=== PATIENT | male | born 1995 | race Asian ===

== ENCOUNTER 2020-05-30 15:44 | Outpatient (REF) | payer OTHER, SELFPAY | END 2020-05-30 15:45 | disposition home or self-care (01) | LOC: HO.LAB 15:44 | PROVIDERS: Visit Provider Internal Medicine | DX: Z20.822 Contact with and (suspected) exposure to COVID-19 (principal) | CPT/HCPCS: 36415; C9803; U0003 ==

== ENCOUNTER 2020-06-09 12:39 | Outpatient (REF) | payer OTHER, SELFPAY | END 2020-06-09 12:40 | disposition home or self-care (01) | LOC: HO.LAB 12:39 | PROVIDERS: Visit Provider Internal Medicine | DX: Z20.822 Contact with and (suspected) exposure to COVID-19 (principal) | CPT/HCPCS: 36415; C9803; U0003; U0005 ==

== ENCOUNTER 2020-11-25 17:05 | Emergency (ER) | payer OTHER, SELFPAY | END 2020-11-25 18:54 | disposition left against medical advice (07) | PROVIDERS: Emergency Provider Emergency Medicine | DX: R10.9 Unspecified abdominal pain (principal) ==

== ENCOUNTER 2020-11-26 19:35 | Emergency (ER) | payer OTHER, SELFPAY ==
--- NOTE | ~2020-11-26 | CT_ITS ---
EXAMINATION: CT ABDOMEN AND PELVIS WITH CONTRAST CLINICAL INFORMATION: Right lower quadrant pain COMPARISON: None TECHNIQUE: Multidetector volumetric images were obtained from the superior aspect of the liver through the pubic symphysis following administration 85 mL of Omnipaque 350 intravenous contrast. Sagittal and coronal reformatted images were obtained on the technologist's workstation. Oral contrast: No This CT examination was performed using dose optimization techniques as appropriate, variously including the following: *Automated exposure control *Adjustment of mA and/or kV according to patient size (this includes techniques or standardized protocols for targeted exams where dose is matched to indication/reason for exam; i.e. extremities or head) *Use of iterative reconstruction technique DLP: 564 mGy-cm FINDINGS: LUNG BASES: The visualized lung bases are unremarkable. LIVER, GALLBLADDER, AND BILIARY TREE: The liver is normal in size, shape, and attenuation. No focal hepatic lesion or biliary ductal dilatation is present. The gallbladder is unremarkable with no evidence of radiopaque gallstones, gallbladder wall thickening, or obvious pericholecystic inflammatory changes. PANCREAS: Unremarkable. SPLEEN: Unremarkable. ADRENAL GLANDS: Unremarkable. KIDNEYS AND URETERS: The kidneys are normal in size, shape, and attenuation. There are several bilateral nonobstructive radiopaque calculi. The largest radial or calculi lower pole right kidney measures 3 mm. A 2 mm, 3 mm and a 4 mm mid pole right kidney radiopaque calculi seen. There are few punctate radiopaque density seen in midpole left kidney measuring 1 mm. There is a 3 mm radiopaque calculi distal ureter with mild hydroureteronephrosis. There is periureteral fat stranding. There is mild right hydroureteronephrosis but no obstructive etiology seen. BLADDER: Unremarkable. GASTROINTESTINAL TRACT: There is scattered stool and gas seen throughout the colon without any distention. The small bowel loops are normal caliber. The stomach is nondistended and appears unremarkable. ABDOMINAL WALL: A small amount of hernia containing fat is noted. LYMPH NODES: Normal. VASCULAR: Unremarkable. PELVIC VISCERA: The prostate gland is normal size. OSSEOUS STRUCTURES: Unremarkable. CT/CT abdomen pelvis w con IMPRESSION: 3 mm obstructing left distal ureteral stone with periureteral fat stranding, ureteral wall thickening and mild hydroureteronephrosis. There are bilateral nephrolithiasis. Bilateral constipation. Appendix is not visualized but no inflammatory process seen in the right lower quadrant.
[2020-11-26 19:39] VITALS: BP 131/75; PULSE 79; RESP 18; TEMP 36.8; O2SAT 100; BMI 27.3
[2020-11-26 19:52] LABS: Glucose Urine UA NEG (NEG); Leukocyte Esterase Urine NEG (NEG); Nitrite Urine NEG (NEG); PH 6.5 (5.0-8.0); Urine Blood NEG (NEG); Urine Ketones NEG (NEG); Urine Protein NEG (NEG-TRACE)
[2020-11-26 19:57] LABS: Appearance Urine CLEAR; Color Urine YELLOW
[2020-11-26 20:56] VITALS: BP 134/76; PULSE 56; RESP 16; TEMP 37.1; O2SAT 100
--- NOTE | 2020-11-26 21:09 | ED_ITS ---
HPI - Abdominal Pain General Chief Complaint: Abdominal Pain Stated Complaint: kidney stones Time Seen by Provider: 11/26/20 21:09 Source: patient Mode of arrival: ambulatory History of Present Illness HPI narrative: 25-year-old male without significant past medical history but does state a history of kidney stones approximately 2-3 years ago now presents with nonradiating/crampy/constant, lower abdominal/suprapubic pain for the past 2 days that has been worsening and he now rates as a 7/10, he has had decreased appetite and reports an episode of nausea and vomiting approximately 1 day ago but denies fever/chills/diarrhea. Patient does describe difficulty urinating. Related Data Previous Rx's Medication Instructions Recorded ketorolac 10 mg tablet 10 mg PO Q6H PRN 5 Days #20 tab 11/26/20 prednisone 20 mg tablet 20 mg PO DAILY 4 Days #4 tab 11/26/20 tamsulosin 0.4 mg capsule (Flomax) 0.4 mg PO BEDTIME #4 cap 11/26/20 Allergies Allergy/AdvReac Type Severity Reaction Status Date / Time No Known Allergies Allergy Verified 11/26/20 19:39 Review of Systems Review of Systems Pertinent positives and negatives as stated in HPI 10 point review of systems otherwise negative. Physical Exam Vital Signs: Vital Signs: Last Vital Signs Temp 99 F 11/26/20 22:27 Pulse 77 11/26/20 22:27 Resp 12 11/26/20 22:27 BP 122/67 11/26/20 22:27 Pulse Ox 100 11/26/20 22:27 Body Mass Index 27.3 VITAL SIGNS: Reviewed. GENERAL: Well developed, well nourished, in no acute distress. HEAD: Normocephalic/atraumatic EYES: PERRLA, EOMI EARS: Ext canals without abnormality OROPHARYNX: no oral lesions noted, posterior pharynx clear LUNGS: Normal breath sounds. No adventitious sounds or accessory muscle use. SpO2<100> CARDIOVASCULAR: Regular rate and rhythm without noted murmurs ABDOMEN: Soft, tenderness at right lower quadrant/suprapubic without rebound non-distended with bowel sounds. MUSCULOSKELETAL: No tenderness, deformities, or effusions noted on gross inspection. EXTREMITIES: No cyanosis, clubbing or edema. SKIN: Inspection of the skin reveals no rashes NEUROLOGIC: Alert and oriented x 4. Strength and sensation to light touch were grossly intact x 4. Course Course Course Narrative: 25-year-old male with history and clinical presentation suggestive of possible appendicitis as there is no described flank pain and review of urinalysis results without hematuria, suspicion for appendicitis is upper most in my mind. Review of all investigations significant for 3 mm obstructing left distal ureteral stone, and on re-evaluation patient's pain has completely resolved. I discussed the case briefly with Urology who is agreeable to see patient in the morning. Discussed all results with the patient at bedside and he was discharged in stable condition. MDM - Abdominal Pain Lab Data Result diagrams: 11/26/20 21:16 11/26/20 21:16 Labs: Lab Results 11/26/20 11/26/20 11/26/20 Range/Units 19:46 21:16 21:16 WBC 6.9 (4.8-10.8) X10*3/uL RBC 5.14 (4.60-5.80) X10*6/uL Hgb 11.7 L (14.0-18.0) g/dl Hct 38.6 L (42-52) % MCV 75.1 L (80-98) fL MCH 22.8 L (27.0-33.0) pg MCHC 30.3 L (31.0-36.0) g/dl RDW 14.6 (11.0-16.0) % Plt Count 225 (160-400) X10*3/uL MPV 11.3 (9.4-12.4) fL Immature Gran % (Auto) 0.1 (0.0-0.4) % Neut % (Auto) 36.9 L (45-73) % Lymph % (Auto) 47.1 H (20-40) % [place] % (Auto) 9.0 (2-11) % Eos % (Auto) 6.5 H (0-4) % Baso % (Auto) 0.4 (0-2) % Lymph # (Auto) 3.3 (1.2-4.9) X10*3/uL [place] # (Auto) 0.6 (0.1-1.2) X10*3/uL Eos # (Auto) 0.5 H (0.0-0.4) X10*3/uL Baso # (Auto) 0.0 (0.0-0.2) X10*3/uL Abs Immat Gran (auto) 0.01 (0.00-0.03) X10*3/uL Absolute Neuts (auto) 2.5 (2.0-8.3) X10*3/uL Absolute Nucleated RBC 0.000 (0.0-0.012) X10*3/uL Nucleated RBC % (auto) 0.0 (0.0-0.2) /100WBC Sodium 139 (135-145) mmol/L Potassium 4.6 (3.3-5.1) mmol/L Chloride 106 (96-108) mmol/L Carbon Dioxide 25 (22-29) mmol/L Anion Gap 13 (12-20) BUN 11 (9-16) mg/dL Creatinine 0.91 (0.5-1.4) mg/dL Estim Creat Clear Calc 119.0 Estimated GFR > 60 Random Glucose 93 (60-115) mg/dL Calcium 9.4 (8.4-10.2) mg/dL Total Bilirubin 0.3 (0.0-1.0) mg/dL AST 17 (5-37) U/L ALT 22 (0-40) U/L Alkaline Phosphatase 57 (39-117) U/L Total Protein 7.3 (6.5-8.0) g/dL Albumin 4.3 (3.5-5.0) g/dL Urine Color YELLOW Urine Appearance CLEAR Urine pH 6.5 (5.0-8.0) Ur Specific [place] 1.020 (1.005-1.025) Urine Protein NEG (NEG-TRACE) MG/DL Urine Glucose (UA) NEG (NEG) MG/DL Urine Ketones NEG (NEG) MG/DL Urine Blood NEG (NEG) Urine Nitrite NEG (NEG) Ur Leukocyte Esterase NEG (NEG) Discharge Plan Discharge Clinical Impression: Ureterolithiasis, Renal colic Patient Disposition: Home, Self-Care Instructions: Renal Colic (ED), Ureteral Stones (ED) Additional Instructions: 1. Increase fluid hydration especially with water, and avoid caffeine and carbonated beverages. 2. Tylenol 1000 mg, orally, every 6 hours as needed for pain control. Do not exceed 4000 mg within 24 hours. 3. Follow-up with Urology, Dr. Black, by calling the office in the morning. The referral is provided to you below. 4. Return to the ER for acute worsening of symptoms. Prescriptions: New tamsulosin [Flomax] 0.4 mg capsule 0.4 mg PO BEDTIME Qty: 4 RF: 0 ketorolac 10 mg tablet 10 mg PO Q6H PRN (Reason: pain) 5 Days Qty: 20 RF: 0 prednisone 20 mg tablet 20 mg PO DAILY 4 Days Qty: 4 RF: 0 Referrals: Job Sarmiento MD [Physician] - 2 days (Eval and treat for obstructing 3 mm stone.) [facility] Past Medical History Source: nursing notes reviewed Medical History Kidney stones Social History Social History Patient Tobacco Use Status: Never used Tobacco Use of substances other than those prescribed or required for medical reasons: No Advance Directives: No Advance Directives Information Provided: Yes
[2020-11-26 21:19] LABS: MANUAL DIFF FLAG NO
[2020-11-26 21:21] LABS: Basophils Percent Auto 0.4 % (0-2); Eosinophils Absolute Auto 0.5 X10*3/uL (0.0-0.4); Eosinophils Percent Auto 6.5 % (0-4); Hematocrit 38.6 % (42-52); Hemoglobin 11.7 g/dl (14.0-18.0); Imm Gran Abs Auto 0.01 X10*3/uL (0.00-0.03); Imm Gran Pct Auto 0.1 % (0.0-0.4); Lymphocytes Absolute Auto 3.3 X10*3/uL (1.2-4.9); Lymphocytes Percent Auto 47.1 % (20-40); Mean Corpuscular HGB Conc 30.3 g/dl (31.0-36.0); Mean Corpuscular Hemoglobin 22.8 pg (27.0-33.0); Mean Corpuscular Volume 75.1 fL (80-98); Mean Platelet Volume 11.3 fL (9.4-12.4); Monocytes Absolute Auto 0.6 X10*3/uL (0.1-1.2); Neutrophils Absolute Auto 2.5 X10*3/uL (2.0-8.3); Neutrophils Percent Auto 36.9 % (45-73); Platelet Count 225 X10*3/uL (160-400); Red Blood Count 5.14 X10*6/uL (4.60-5.80); Red Cell Distribution Width 14.6 % (11.0-16.0); White Blood Count 6.9 X10*3/uL (4.8-10.8)
[2020-11-26] MEDS: Acetaminophen 325 MG TABLET 975 MG PO (21:22)
[2020-11-26] MEDS: Ketorolac Tromethamine 15 MG/ML VIAL IVPUSH (21:22)
--- NOTE | 2020-11-26 21:28 | PC.NURSE ---
PT REPORTS LOWER ABD PAINx2 DAYS. HX KIDNEY STONES STATE PAIN FEELS SIMILAR. SOME PAIN ON URINATION. DENIES N/V. IV ACCESS AND BLOOD SPECIMEN OBTAINED- SENT TO LAB FOR PROCESSING. MEDICATED PER JUN FOR 10/09 PAIN. AWAITING FURTHER TESTING AND LAB RESULTS.
[2020-11-26 21:55] LABS: Alanine Aminotransferase 22 U/L (0-40); Albumin Level 4.3 g/dL (3.5-5.0); Alkaline Phosphatase 57 U/L (39-117); Anion Gap 13 (12-20); Aspartate Amino Transferase 17 U/L (5-37); Bilirubin Total 0.3 mg/dL (0.0-1.0); Blood Urea Nitrogen 11 mg/dL (9-16); Calcium 9.4 mg/dL (8.4-10.2); Carbon Dioxide 25 mmol/L (22-29); Chloride 106 mmol/L (96-108); Estimated Glomerular Filt Rate > 60; Glucose Random 93 mg/dL (60-115); Potassium 4.6 mmol/L (3.3-5.1); Sodium 139 mmol/L (135-145); Total Protein 7.3 g/dL (6.5-8.0)
[2020-11-26] MEDS: iohexoL 350 MG/ML 100 ML INFUS..BTL IV (22:24)
[2020-11-26 22:27] VITALS: BP 122/67; PULSE 77; RESP 12; TEMP 37.2; O2SAT 100
== END 2020-11-26 23:15 | disposition home or self-care (01) ==
PROVIDERS: Emergency Provider Student in an Organized Health Care Education/Training Program
DX: N13.2 Hydronephrosis with renal and ureteral calculous obstruction (principal); R10.30 Lower abdominal pain, unspecified; Z87.442 Personal history of urinary calculi
CPT/HCPCS: 36415; 74177; 80053; 81003; 85025; 96374; 99284; 99285; J1885; Q9967

== ENCOUNTER 2021-05-12 14:12 | Outpatient (REF) | payer OTHER, SELFPAY ==
[2021-05-12 15:01] LABS: Binax Now Covid-19 Ag Negative (Negative)
[2021-05-12 15:02] LABS: Binax Internal Control QC Valid
== END 2021-05-12 14:13 | disposition home or self-care (01) ==
LOC: HO.LAB 14:12
PROVIDERS: Visit Provider Internal Medicine
DX: Z20.822 Contact with and (suspected) exposure to COVID-19 (principal)
CPT/HCPCS: C9803

== ENCOUNTER 2021-12-18 17:49 | Emergency (ER) | payer OTHER, SELFPAY ==
[2021-12-18 19:43] VITALS: BP 120/60; PULSE 57; RESP 18; TEMP 37.2; O2SAT 99; BMI 26.6
== END 2021-12-19 03:57 | disposition left against medical advice (07) ==
PROVIDERS: Emergency Provider Emergency Medicine
DX: M54.50 Low back pain, unspecified (principal)
CPT/HCPCS: 99281; 99282

== ENCOUNTER 2023-02-09 10:55 | Outpatient (REF) | payer OTHER, SELFPAY ==
[2023-02-10 04:23] LABS: HBS Num1 3.38 mIU/mL (0-7.99); ~HepC Num1 0.06 S/CO (0.00-0.79); ~Hepatitis B Surface Antibody NONREACTIVE (Nonreactive); ~Hepatitis C Antibody Nonreactive (Nonreactive)
[2023-02-10 05:43] LABS: HBc Num2 7.52 S/CO; HBc Num3 7.55 S/CO; HBsAGNum2 Reactive; HBsAGNum3 Reactive; Hepatitis B Core Antibody Reactive (Nonreactive)
[2023-02-10 05:44] LABS: Hepatitis B Surface Antigen Retest CNFM (Negative)
[2023-02-11 12:53] LABS: Alpha Fetoprotein 3.8 ng/mL (<6.1)
[2023-02-11 13:54] LABS: Hepatitis B Viral DNA Qn - cp 2.22 Log IU/mL (NOT DETECTED); Hepatitis B Viral DNA Qn-IU/mL 167 IU/mL (NOT DETECTED)
[2023-02-15 05:44] LABS: Hepatitis B Core Antibody IgM NON-REACTIVE (NON-REACTIVE)
[2023-02-16 22:53] LABS: Hepatitis Delta Antibody NEGATIVE
== END 2023-02-09 10:56 | disposition home or self-care (01) ==
LOC: HO.HHCL 10:55
PROVIDERS: Visit Provider Family Medicine
DX: B19.10 Unspecified viral hepatitis B without hepatic coma (principal); K26.9 Duodenal ulcer, unspecified as acute or chronic, without hemorrhage or perforation
CPT/HCPCS: 36415; 80053; 80061; 82105; 82728; 83540; 85025; 86692; 86704; 86705; 86706; 86803; 87340; 87517

== ENCOUNTER 2023-02-16 15:29 | Outpatient (REF) | payer OTHER, SELFPAY ==
[2023-02-18 08:05] LABS: ~Hepatitis B Surface Antibody NONREACTIVE (Nonreactive)
[2023-02-18 09:19] LABS: HBc Num2 7.75 S/CO; HBc Num3 7.54 S/CO; HBsAGNum2 Reactive; HBsAGNum3 Reactive; Hepatitis B Core Antibody Reactive (Nonreactive); Hepatitis B Surface Antigen Retest CNFM (Negative)
[2023-02-18 16:03] LABS: Hepatitis B Viral DNA Qn - cp <1.00 DETECTED Log IU/mL (NOT DETECTED); Hepatitis B Viral DNA Qn-IU/mL <10 DETECTED IU/mL (NOT DETECTED)
[2023-02-19 08:38] LABS: Hepatitis B Core Antibody IgM NON-REACTIVE (NON-REACTIVE)
[2023-02-23 20:34] LABS: Hepatitis Delta Antibody NEGATIVE
== END 2023-02-16 15:30 | disposition home or self-care (01) ==
LOC: HO.HHCL 15:29
PROVIDERS: Visit Provider Family Medicine
DX: B19.10 Unspecified viral hepatitis B without hepatic coma (principal)
CPT/HCPCS: 36415; 86692; 86704; 86705; 86706; 87340; 87517

== ENCOUNTER 2023-03-09 08:20 | Outpatient (REF) | payer OTHER, SELFPAY ==
--- NOTE | ~2023-03-09 | US_ITS ---
EXAMINATION: US ABDOMEN COMPLETE CLINICAL INFORMATION: Hepatitis B. COMPARISON: CT abdomen and pelvis with contrast 11/26/2020. TECHNIQUE: Real-time imaging of the abdominal viscera. Technically limited study secondary to body habitus. FINDINGS: PANCREAS: Obscured. ABDOMINAL AORTA: Mostly obscured. INFERIOR VENA CAVA: Visualized portions are normal. LIVER: The liver is normal in size. The liver contour is normal. Parenchymal echogenicity is normal. No focal hepatic lesion. There is no intrahepatic biliary duct dilatation seen. GALLBLADDER: Possible adenomyomatosis. The gallbladder is physiologically distended without evidence of stones, sludge, polyps, wall thickening or pericholecystic fluid. COMMON BILE DUCT: Not visualized. RIGHT KIDNEY: Few nonobstructing renal calculi with the largest measuring 9 mm. No hydronephrosis. The kidney measures 10.0 cm in maximum dimension. LEFT KIDNEY: Possible upper pole cyst measures 6 x 3 x 6 mm. Few nonobstructing renal calculi with the largest measuring 6 mm. No hydronephrosis. The kidney measures 10.4 cm in maximum dimension. SPLEEN: The spleen measures 12.6 cm in maximum dimension. FREE FLUID: None. US/US abdomen complete IMPRESSION: Bilateral nephrolithiasis suspected. No hydronephrosis. Possible adenomyomatosis of the gallbladder.
== END 2023-03-09 08:21 | disposition home or self-care (01) ==
LOC: HO.US 08:20
PROVIDERS: PCP Family Medicine; Visit Provider Family Medicine
DX: B19.10 Unspecified viral hepatitis B without hepatic coma (principal)
CPT/HCPCS: 76700

== ENCOUNTER 2023-03-09 12:12 | Outpatient (REF) | payer OTHER, SELFPAY ==
[2023-03-09 13:47] LABS: Hematocrit 43.7 % (42.0-52.0); Hemoglobin 12.4 g/dl (14.0-18.0); Mean Corpuscular HGB Conc 28.4 g/dl (31.0-36.0); Mean Corpuscular Hemoglobin 22.4 pg (27.0-33.0); Mean Corpuscular Volume 78.9 fL (80.0-98.0); Mean Platelet Volume 11.5 fL (9.4-12.4); Platelet Count 234 X10*3/uL (160-400); Red Blood Count 5.54 X10*6/uL (4.60-5.80); White Blood Count 5.7 X10*3/uL (4.8-10.8)
== END 2023-03-09 12:13 | disposition home or self-care (01) ==
LOC: HO.HHCL 12:12
PROVIDERS: Visit Provider Family Medicine
DX: D64.9 Anemia, unspecified (principal)
CPT/HCPCS: 36415; 85027

== ENCOUNTER 2023-06-08 18:28 | Outpatient (REF) | payer OTHER, SELFPAY ==
[2023-06-08 18:42] LABS: Appearance Urine Clear; Color Urine Yellow; Glucose Urine UA Negative (Negative); Leukocyte Esterase Urine Negative (Negative); Nitrite Urine Negative (Negative); Specific Gravity - Urine <= 1.005 (1.005-1.025); Urine Blood Negative (Negative); Urine Ketones Negative (Negative); Urine Protein Negative (Neg-Trace)
[2023-06-08 18:48] LABS: Bacteria Urine None Seen (None Seen); Hyaline Casts Urine 0-2 /LPF (0-2); RBC Urine 0-2 /HPF (0-2); Squamous Epithelial Cell Urine 0-2 /HPF (0-2); WBC Urine 0-5 /HPF (0-5)
== END 2023-06-08 18:29 | disposition home or self-care (01) ==
LOC: HO.HHCLNP 18:28
PROVIDERS: Visit Provider Nurse Practitioner
DX: R39.9 Unspecified symptoms and signs involving the genitourinary system (principal)
CPT/HCPCS: 81001

== ENCOUNTER 2023-06-09 10:47 | Outpatient (REF) | payer OTHER, SELFPAY ==
[2023-06-09 11:24] LABS: MANUAL DIFF FLAG NO
[2023-06-09 11:43] LABS: Basophils Percent Auto 0.5 % (0-2); Eosinophils Absolute Auto 0.5 X10*3/uL (0.0-0.4); Eosinophils Percent Auto 7.9 % (0-4); Hematocrit 48.5 % (42.0-52.0); Hemoglobin 15.6 g/dl (14.0-18.0); Imm Gran Abs Auto 0.02 X10*3/uL (0.00-0.03); Imm Gran Pct Auto 0.4 % (0.0-0.4); Lymphocytes Absolute Auto 2.2 X10*3/uL (1.2-4.9); Lymphocytes Percent Auto 38.9 % (20-40); Mean Corpuscular HGB Conc 32.2 g/dl (31.0-36.0); Mean Corpuscular Hemoglobin 25.7 pg (27.0-33.0); Mean Platelet Volume 11.6 fL (9.4-12.4); Monocytes Absolute Auto 0.4 X10*3/uL (0.1-1.2); Monocytes Percent Auto 7.2 % (2-11); Neutrophils Absolute Auto 2.6 x10*3/uL (2.0-8.3); Neutrophils Percent Auto 45.1 % (45-73); Platelet Count 170 X10*3/uL (160-400); Red Blood Count 6.06 X10*6/uL (4.60-5.80); Red Cell Distribution Width 13.5 % (11.0-16.0); White Blood Count 5.7 X10*3/uL (4.8-10.8)
[2023-06-09 12:08] LABS: Iron 49 mcg/dL (45-160); Percent Iron Saturation 15 % (15-50); Total Iron Binding Capacity 333 mcg/dL (228-428); Unsaturated Iron Binding 284 ug/dL
[2023-06-09 12:31] LABS: Ferritin 14 ng/mL (20-250)
== END 2023-06-09 10:48 | disposition home or self-care (01) ==
LOC: HO.HHCL 10:47
PROVIDERS: Visit Provider Nurse Practitioner
DX: D64.9 Anemia, unspecified (principal)
CPT/HCPCS: 36415; 82728; 83540; 85025

== ENCOUNTER 2023-06-17 11:35 | Outpatient (REF) | payer OTHER, SELFPAY ==
[2023-06-17 12:58] LABS: Alanine Aminotransferase 35 U/L (0-40); Aspartate Amino Transferase 22 U/L (5-37); Estimated Glomerular Filt Rate > 60
[2023-06-17 13:23] LABS: HBS Num1 0.94 mIU/mL (0-7.99); HBc Num1 7.16 S/CO (0.00-0.79); HIV AB/AG Nonreactive (Nonreactive); HIV Num 1 0.05 S/CO (0.00-0.99); ~HepC Num1 0.11 S/CO (0.00-0.79); ~Hepatitis B Surface Antibody NONREACTIVE (Nonreactive); ~Hepatitis C Antibody Nonreactive (Nonreactive)
[2023-06-17 13:25] LABS: Syphilis Screen Nonreactive (Nonreactive)
[2023-06-17 14:26] LABS: HBc Num2 6.93 S/CO; HBc Num3 6.91 S/CO; HBsAGNum2 Reactive; HBsAGNum3 Reactive; Hepatitis B Core Antibody Reactive (Nonreactive); Hepatitis B Surface Antigen Retest CNFM (Negative)
[2023-06-18 10:34] LABS: Hepatitis B Core Antibody IgM NON-REACTIVE (NON-REACTIVE)
[2023-06-20 10:18] LABS: HBsAG REACTIVE
[2023-06-20 12:58] LABS: Hepatitis B Viral DNA Qn - cp NOT DETECTED Log IU/mL (NOT DETECTED); Hepatitis B Viral DNA Qn-IU/mL NOT DETECTED (NOT DETECTED)
== END 2023-06-17 11:36 | disposition home or self-care (01) ==
LOC: HO.LAB 11:35
PROVIDERS: PCP Nurse Practitioner; Visit Provider Internal Medicine Infectious Disease
DX: Z11.4 Encounter for screening for human immunodeficiency virus [HIV] (principal); B19.10 Unspecified viral hepatitis B without hepatic coma
CPT/HCPCS: 36415; 82565; 84450; 84460; 86704; 86705; 86706; 86780; 86803; 87340; 87389; 87517

== ENCOUNTER 2023-07-25 13:44 | Outpatient (AMB) | payer OTHER, SELFPAY ==
--- NOTE | 2023-07-25 13:49 | A.OFFVIS_ITS ---
Intake Vital Signs 07/25/23 13:59 Height 5 ft 8 in Weight 185 lb 3.013 oz BMI 28.2 BP 132/72 Blood Pressure Location Lt brachial Position Sitting Pulse 77 Pulse Oximetry (%) 99 Oxygen Delivery Method Room Air Intake Visit Reasons: Duodenal ulcer Intake Note: pt here for pcp referral duodenal ulcer, abdominal pain, acid reflux,nause, no vomiting or diarrhea. Information Interpreted: non-clinical & clinical Accompanied by: Self / Same As Patient Allergies No Known Allergies Allergy (Verified 07/25/23 13:50) Medication List - Last Reconciled 07/25/23 by JACQUE Teresa-CHRIS entecavir 0.5 mg PO DAILY HPI Duodenal ulcer HPI Details Patient had upper endoscopy in [place] in November of 2022 that showed duodenal ulcers. Patient brought in his medical records from there, copy made for our records. Patient was on PPI, however last month his anemia improved and the PPI and iron was stopped. Patient continues to have epigastric discomfort and burning. Patient mainly eats food sometimes spicy food does not eat late at night. Patient reports that he has been treated for hep B for over 10 years. Currently under care of ID and is on daily antiviral. Patient does not remember the name. [facility] Medical History (Updated 08/01/23 @ 20:35 by DREW Teresa) GERD (gastroesophageal reflux disease) Duodenal ulcer disease Kidney stones Family History (Updated 07/25/23 @ 13:59 by Pamela Dobbs MA) Father Diabetes Social History (Updated 07/25/23 @ 13:59 by Pamela Dobbs MA) Household Members: Family Patient Tobacco Use Status: Never used Tobacco Review of Systems Const Denies weight gain and Denies weight loss ENT Reports no additional complaints, Denies dysphagia and Denies odynophagia Card Reports no additional complaints Resp Reports no additional complaints GI Denies abdominal pain, Denies belching, Denies melena, Denies bloating, Reports constipation, Denies dysphagia, Denies excessive flatus, Denies dyspepsia, Reports heartburn, Denies diarrhea, Denies loose stools, Denies nausea, Denies odynophagia and Denies vomiting Reports no additional complaints Musc Reports no additional complaints Neuro Reports no additional complaints Psych Reports no additional complaints Endo Reports no additional complaints Physical Exam Vital Signs: Last Vital Signs Pulse 77 07/25/23 13:59 BP 132/72 07/25/23 13:59 Pulse Ox 99 07/25/23 13:59 Oxygen Delivery Method Room Air 07/25/23 13:59 BMI result Body Mass Index 28.2 Const General: healthy appearing and no acute distress Nutritional Appearance: obese Orientation/consciousness: patient oriented x3 Resp Effort & Inspection: normal respiratory effort, able to speak in complete sentences, no tracheal deviation and symmetric chest movement Auscultation: clear to auscultation bilaterally Cardio Rate: regular rate GI Inspection: Yes normal to inspection, No distended and Yes obesity Palpation (GI): Soft to palpation, not firm, nontender and No hepatosplenomegaly present Auscultation: normal bowel sounds General: Yes no CVA tenderness Back/Spine/Pelvis Back: no CVA tenderness Skin General skin exam: elasticity normal, turgor normal and dry skin Neuro General: patient oriented x3 Psych Appearance: grossly normal Mental Status: mental status grossly normal Affect: normal affect Assessment & Plan Assessment & Plan (1) Duodenal ulcer disease: Code(s): K26.9 - Duodenal ulcer, unspecified as acute or chronic, without hemorrhage or perforation (2) GERD (gastroesophageal reflux disease): Code(s): K21.9 - Gastro-esophageal reflux disease without esophagitis Qualifiers: Esophagitis presence: esophagitis presence not specified Qualified Code(s): K21.9 - Gastro-esophageal reflux disease without esophagitis (3) Constipation: Code(s): K59.00 - Constipation, unspecified Qualifiers: Constipation type: slow transit constipation Qualified Code(s): K59.01 - Slow transit constipation Plan Will check for H pylori and rule out celiac. If H pylori positive will treat empirically. Will check his lipase as well. Patient does report epigastric pain and left upper quadrant pain postprandially. As mentioned above in HPI patient had upper endoscopy in November treated for duodenal ulcer his PPI recently stopped. Patient is having epigastric pain will start him on esomeprazole. Patient can start taking Dulcolax daily for constipation. He was encouraged to increase fluid intake and activity to promote better bowel motility. I will see him in 5 weeks, sooner on as needed basis. Patient will be scheduled for upper endoscopy to rule out duodenal or gastric ulcer, gastritis, duodenitis, esophagitis, H pylori, Barakat's. Patient is agreeable to this plan verbalizes understanding of instructions. He was given the opportunity to ask questions and all questions answered. Thank you for allowing me to participate in his care Orders: Orders Transglutaminase Ab IgG 07/25/23 R10.9 - Unspecified abdominal pain H Pylori Breath Test 07/26/23 K21.9 - Gastro-esophageal reflux disease without esophagitis Transglutaminase IgA 07/25/23 R10.9 - Unspecified abdominal pain Lipase 07/25/23 R10.9 - Unspecified abdominal pain Medications: New esomeprazole magnesium (Nexium) 40 mg PO DAILY 30 caps 5RF K21.9 - Gastro- esophageal reflux disease without esophagitis bisacodyl (Dulcolax (bisacodyl)) 10 mg (2 x 5 mg) PO BEDTIME 60 tabs 4RF Coding Level of Care Code New Pt Level 4 (22537) Diagnoses Duodenal ulcer disease K26.9 Gastroesophageal reflux disease, unspecified whether esophagitis present K21.9 Esophagitis presence: esophagitis presence not specified Slow transit constipation K59.01 Constipation type: slow transit constipation Time Spent (min) 45 Comment 30 minutes spent with patient and additional 15 minutes spent reviewing his records
[2023-07-25 13:59] VITALS: BP 132/72; PULSE 77; O2SAT 99; BMI 28.2
== END 2023-07-25 14:45 | disposition home or self-care (01) ==
PROVIDERS: PCP Nurse Practitioner; Visit Provider Nurse Practitioner Family
DX: K26.9 Duodenal ulcer, unspecified as acute or chronic, without hemorrhage or perforation (principal); K21.9 Gastro-esophageal reflux disease without esophagitis; K59.01 Slow transit constipation
CPT/HCPCS: 99204

== ENCOUNTER 2023-07-25 13:44 | Outpatient (REF) | payer OTHER, SELFPAY ==
[2023-07-25 15:52] LABS: Lipase 32 U/L (8-78)
[2023-07-30 16:24] LABS: Transglutaminase Ab IgG <1.0 U/mL; Transglutaminase IgA <1.0 U/mL
== END 2023-07-25 13:45 | disposition home or self-care (01) ==
LOC: HO.LAB 13:44
PROVIDERS: PCP Nurse Practitioner; Visit Provider Nurse Practitioner Family
DX: R10.9 Unspecified abdominal pain (principal); K26.9 Duodenal ulcer, unspecified as acute or chronic, without hemorrhage or perforation
CPT/HCPCS: 36415; 83690; 86364; 99202

== ENCOUNTER 2023-07-25 16:11 | Outpatient (REF) | payer OTHER, SELFPAY ==
[2023-07-27 14:12] LABS: H Pylori Breath Test Negative (Negative)
== END 2023-07-25 16:12 | disposition home or self-care (01) ==
LOC: HO.LNP 16:11
PROVIDERS: Visit Provider Nurse Practitioner Family
DX: K21.9 Gastro-esophageal reflux disease without esophagitis (principal)
CPT/HCPCS: 83013

== ENCOUNTER 2023-08-08 15:02 | Outpatient (REF) | payer OTHER, SELFPAY ==
[2023-08-08 16:16] LABS: MANUAL DIFF FLAG NO
[2023-08-08 16:20] LABS: Basophils Percent Auto 0.5 % (0-2); Eosinophils Absolute Auto 0.4 X10*3/uL (0.0-0.4); Eosinophils Percent Auto 4.9 % (0-4); Hematocrit 46.7 % (42.0-52.0); Imm Gran Abs Auto 0.02 X10*3/uL (0.00-0.03); Imm Gran Pct Auto 0.2 % (0.0-0.4); Lymphocytes Percent Auto 35.7 % (20-40); Mean Corpuscular HGB Conc 32.1 g/dl (31.0-36.0); Mean Corpuscular Hemoglobin 26.1 pg (27.0-33.0); Mean Corpuscular Volume 81.2 fL (80.0-98.0); Mean Platelet Volume 12.3 fL (9.4-12.4); Monocytes Absolute Auto 0.6 X10*3/uL (0.1-1.2); Monocytes Percent Auto 7.2 % (2-11); Neutrophils Absolute Auto 4.3 x10*3/uL (2.0-8.3); Neutrophils Percent Auto 51.5 % (45-73); Platelet Count 225 X10*3/uL (160-400); Red Blood Count 5.75 X10*6/uL (4.60-5.80); Red Cell Distribution Width 13.3 % (11.0-16.0); White Blood Count 8.3 X10*3/uL (4.8-10.8)
== END 2023-08-08 15:03 | disposition home or self-care (01) ==
LOC: HO.HHCL 15:02
PROVIDERS: Visit Provider Nurse Practitioner Family
DX: K64.9 Unspecified hemorrhoids (principal); K62.6 Ulcer of anus and rectum
CPT/HCPCS: 36415; 85025; 86695; 86696

== ENCOUNTER 2023-08-30 11:40 | Outpatient (AMB) | payer OTHER, SELFPAY ==
--- NOTE | 2023-08-30 11:50 | A.OFFVIS_ITS ---
Vital Signs 08/30/23 11:54 Height 5 ft 8 in Weight 176 lb BMI 26.8 BP 117/73 Blood Pressure Location Lt brachial Position Sitting Pulse 70 Intake Visit Reasons: follow up Intake Note: Patient follow up for constipation, lab and H pylori results Patient cc: abdominal pin with bloating, constipation with bloody hemorrhoids. 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 If H pylori positive will treat empirically. Will check his lipase as well. Patient does report epigastric pain and left upper quadrant pain postprandially. As mentioned above in HPI patient had upper endoscopy in November treated for duodenal ulcer his PPI recently stopped. Patient is having epigastric pain will start him on esomeprazole. Patient can start taking Dulcolax daily for constipation. He was encouraged to increase fluid intake and activity to promote better bowel motility. I will see him in 5 weeks, sooner on as needed basis. Patient will be scheduled for upper endoscopy to rule out duodenal or gastric ulcer, gastritis, duodenitis, esophagitis, H pylori, Barakat's. Patient is agreeable to this plan verbalizes understanding of instructions. He was given the opportunity to ask questions and all questions answered. ? Thank you for allowing me to participate in his care Orders Orders Transglutaminase Ab IgG 07/25/23 R10.9 H Pylori Breath Test 07/26/23 K21.9 Transglutaminase IgA 07/25/23 R10.9 Lipase 07/25/23 R10.9 Medications New esomeprazole magnesium (Nexium) 40 mg PO DAILY 30 caps 5RF K21.9 bisacodyl (Dulcolax (bisacodyl)) 10 mg (2 x 5 mg) PO BEDTIME 60 tabs 4RF TODAY'S VISIT: Patient is here today for follow-up and to discuss lab results. Negative for H pylori, normal lipase, negative celiac study. Patient reports that Nexium is helpful. Denies any epigastric pain or discomfort. Occasional acid reflux depending on what he eats. Patient continues to be constipated and continues to have rectal bleed occasionally after bowel movement. Patient reports that he has to strain in order to have a bowel movement. States that he is taking Dulcolax and is moving his bowels, however not completely. Patient denies any melena, unintentional weight loss or ribbon like stools. No known family history of colorectal cancer. [facility] Medical History (Updated 08/01/23 @ 20:35 by Keisha Velasquez, [facility]) GERD (gastroesophageal reflux disease) Duodenal ulcer disease Kidney stones Family History Father Diabetes Social History Household Members: Family Patient Tobacco Use Status: Never used Tobacco Review of Systems Const Denies weight gain and Denies weight loss ENT Reports no additional complaints, Denies dysphagia and Denies odynophagia Card Reports no additional complaints Resp Reports no additional complaints GI Denies abdominal pain, Denies belching, Denies melena, Denies bloating, Reports hematochezia (Occasionally), Denies change in bowel habits, Reports constipation, Denies dysphagia, Denies excessive flatus, Denies dyspepsia, Reports heartburn (Occasionally), Denies diarrhea, Denies loose stools, Denies nausea, Denies odynophagia and Denies vomiting Reports no additional complaints Musc Reports no additional complaints Neuro Reports no additional complaints Psych Reports no additional complaints Endo Reports no additional complaints Physical Exam Vital Signs: Last Vital Signs Pulse 70 08/30/23 11:54 BP 117/73 08/30/23 11:54 BMI result Body Mass Index 26.8 Const General: healthy appearing and no acute distress Nutritional Appearance: obese Orientation/consciousness: patient oriented x3 Resp Effort & Inspection: normal respiratory effort, able to speak in complete sentences, no tracheal deviation and symmetric chest movement Auscultation: clear to auscultation bilaterally Cardio Rate: regular rate GI Inspection: Yes normal to inspection, No distended and Yes obesity Palpation (GI): Soft to palpation, not firm, nontender and No hepatosplenomegaly present Auscultation: normal bowel sounds General: Yes no CVA tenderness Back/Spine/Pelvis Back: no CVA tenderness Skin General skin exam: elasticity normal, turgor normal and dry skin Neuro General: patient oriented x3 Psych Appearance: grossly normal Mental Status: mental status grossly normal Affect: normal affect Results Reviewed Results Reviewed: Laboratory Tests 07/25/23 07/25/23 14:37 14:55 Lipase 32 Tiss Transglutamin IgG <1.0 Tiss Transglutamin IgA <1.0 H. pylori Breath Test Negative Assessment & Plan Assessment & Plan (1) GERD (gastroesophageal reflux disease): Code(s): K21.9 - Gastro-esophageal reflux disease without esophagitis Category: Medical Qualifiers: Esophagitis presence: esophagitis presence not specified Qualified Code(s): K21.9 - Gastro-esophageal reflux disease without esophagitis (2) Duodenal ulcer disease: Code(s): K26.9 - Duodenal ulcer, unspecified as acute or chronic, without hemorrhage or perforation Category: Medical (3) Constipation: Code(s): K59.00 - Constipation, unspecified Qualifiers: Constipation type: slow transit constipation Qualified Code(s): K59.01 - Slow transit constipation Plan Continue Nexium. Patient will be sent for upper endoscopy occasional acid reflux depending on what he eats. Patient has had a history of peptic ulcer disease diagnosed last year. Continues to be constipated. Patient was encouraged to increase fluid intake. Patient states that he is not drinking any water. At least 2-3 bottles of water a day. Continue to take Dulcolax tablets, will start taking Colace 2 tablets every evening. I will see him after the procedure, sooner on as needed basis. Patient is agreeable to this plan and verbalizes understanding of instructions. He was given the opportunity to ask questions and all questions answered. Thank you for allowing me to participate in his care Medications: New docusate sodium 200 mg (2 x 100 mg) PO BEDTIME 180 caps 3RF K59.00 - Constipation, unspecified hydrocortisone 2.5% (Proctosol HC) 1 appl NM BID-QID PRN 30 grams 2RF hemorrhoids K64.9 - Unspecified hemorrhoids Coding Level of Care Code Est Pt Level 3 (84377) Diagnoses Gastroesophageal reflux disease, unspecified whether esophagitis present K21.9 Esophagitis presence: esophagitis presence not specified Duodenal ulcer disease K26.9 Slow transit constipation K59.01 Constipation type: slow transit constipation Time Spent (min) 30 Comment 20 minutes spent with patient and additional 10 minutes spent reviewing his records
[2023-08-30 11:54] VITALS: BP 117/73; PULSE 70; BMI 26.8
== END 2023-08-30 12:17 | disposition home or self-care (01) ==
PROVIDERS: PCP Nurse Practitioner; Visit Provider Nurse Practitioner Family
DX: K21.9 Gastro-esophageal reflux disease without esophagitis (principal); K26.9 Duodenal ulcer, unspecified as acute or chronic, without hemorrhage or perforation; K59.01 Slow transit constipation
CPT/HCPCS: 99213

== ENCOUNTER → 2023-08-30 11:40 | Outpatient (BNVA) | payer OTHER, SELFPAY | PROVIDERS: PCP Nurse Practitioner; Visit Provider Nurse Practitioner Family | DX: K21.9 Gastro-esophageal reflux disease without esophagitis (principal); K26.9 Duodenal ulcer, unspecified as acute or chronic, without hemorrhage or perforation; K59.01 Slow transit constipation | CPT/HCPCS: 99212 ==

== ENCOUNTER 2023-09-01 08:22 | Day surgery (SDC) | payer OTHER, SELFPAY ==
--- NOTE | 2023-08-31 12:22 | HO.ANESPROP2 ---
HPI - Anesthesia Eval Consult details Narrative: 27yo M for Upper Endoscopy PMFSH Active Problems Active Problems: All Active Problems GERD (gastroesophageal reflux disease) (Acute) Duodenal ulcer disease (Acute) Past Medical History Medical History GERD (gastroesophageal reflux disease) Duodenal ulcer disease Kidney stones Family History Family History Father Diabetes Social History Social History Household Members: Family Patient Tobacco Use Status: Never used Tobacco Use of substances other than those prescribed or required for medical reasons: No Are you DNR?: No Advance Directives: No Advance Directives Information Provided: Yes Meds Allergies Allergy/AdvReac Type Severity Reaction Status Date / Time No Known Allergies Allergy Verified 08/30/23 11:49 Home Medications ?Medication ?Instructions ?Recorded ?Confirmed ?Last Taken ?Type entecavir 0.5 mg tablet 0.5 mg PO DAILY 07/25/23 09/01/23 Unknown History Assessment and Plan Assessment Anesthesia Assessment: Chart Reviewed
--- NOTE | 2023-09-01 08:56 | MHC.SHP ---
Pre-Procedural Eval Section A - 24 Hr Update-Section A only Date of Service: 09/01/23 Section B - Complete if H&P > 30 days Chief Complaint: Duodenal ulcer, unspecified as acute/chronic, gerd Relevant Family History (Specify if Yes): No Relevant Social History: None Present Medications: see Short Stay Collaborative assessment Medical History: Significant History (GERD (gastroesophageal reflux disease) Duodenal ulcer disease Kidney stones) History of Previous Operations: No relevant previous surgery Allergies: Allergies Allergy/AdvReac Type Severity Reaction Status Date / Time No Known Allergies Allergy Verified 08/30/23 11:49 Review of Systems Sugical H&P ROS: Negative: Constitution, Cardiovascular, Respiratory, Neurological, Psychiatric, Hem-Onc, Allergic/Immunologic, Gastrointestinal, Genitourinary, Musculoskeletal, Integumentary, Endocrine and Eyes/Ears/Nose/Throat Exam Surgical H&P Exam: Normal: HEENT, Normal: Heart, Normal: Lungs, Normal: Extremities, Normal: Abdomen, Normal: Skin and Normal: Neurological Plan Diagnosis/Plan: Unchanged I have reviewed the history and physical and performed a pertinent physical examination on my patient. No changes have occurred unless specified. Time Spent With Patient Time: Total time managing care of this patient today ____ minutes.
[2023-09-01 09:07] VITALS: BP 130/83; PULSE 66; RESP 18; TEMP 36.2; O2SAT 98; BMI 27.1
--- NOTE | 2023-09-01 09:27 | P.CONAN_ITS ---
[facility] Active Problems Active Problems: All Active Problems GERD (gastroesophageal reflux disease) (Acute) Duodenal ulcer disease (Acute) Past Medical History Medical History GERD (gastroesophageal reflux disease) Duodenal ulcer disease Kidney stones Functional capacity: independent ambulation Family History Family History Father Diabetes Family history of problems with anesthesia: No Surgical History History of Problems with Anesthesia: No Social History Social History Household Members: Family Patient Tobacco Use Status: Never used Tobacco Use of substances other than those prescribed or required for medical reasons: No Are you DNR?: No Advance Directives: No Advance Directives Information Provided: Yes Meds Allergies Allergy/AdvReac Type Severity Reaction Status Date / Time No Known Allergies Allergy Verified 08/30/23 11:49 Active Medications: Current Medications Lactated Ringer's (Lr) 1,000 mls @ 100 mls/hr IVCONT .Q10H JOSHUA Home Medications ?Medication ?Instructions ?Recorded ?Confirmed ?Last Taken ?Type entecavir 0.5 mg tablet 0.5 mg PO DAILY 07/25/23 09/01/23 Unknown History Exam Height,Weight and Vital Signs: Height 5 ft 8 in Weight 80.739 kg Last Vital Signs Temp 97.2 F 09/01/23 09:07 Pulse 66 09/01/23 09:07 Resp 18 09/01/23 09:07 BP 130/83 09/01/23 09:07 Pulse Ox 98 09/01/23 09:07 O2 Del Method Room Air 09/01/23 09:07 Airway Mallampati Class: III TM Dist: >3cm Neck ROM: Full Heart: RRR Lungs: CTA Assessment and Plan Assessment Anesthesia Assessment: Anesthesia Plan Discussed Final Anesthetic Review Family History of Problems with Anesthesia: No History of Problems with Anesthesia: No NPO: Yes ASA Class: II Final Preanesthetic Review: Meds/Allgs Chart Reviewed, Consent Obtained/Reviewed and Anes Risks/Benef Reviewed Patient Risk: Intermediate Procedure Risk: Low Anesthetic Plan Anesthetic Plan: MAC: Disposition: Standard PACU
[2023-09-01 09:34] VITALS: BP 130/83; PULSE 66; RESP 18; TEMP 36.2; O2SAT 98
[2023-09-01] MEDS: Lactated Ringers 1,000 ML 100 ML IVCONT (09:36)
[2023-09-01 11:25] VITALS: BP 119/69; PULSE 65; RESP 16; TEMP 36.8; O2SAT 97
[2023-09-01 11:40] VITALS: BP 127/68; PULSE 59; RESP 18; TEMP 36.8; O2SAT 98
--- NOTE | 2023-09-01 12:12 | HO.POSTANES ---
Post Anesthesia Evaluation Post Anesthesia Evaluation Date of Service: 09/01/23 Vital Signs: Vital Signs Temp Pulse Resp BP Pulse Ox O2 Del Method 09/01/23 11:40 98.3 F 59 18 127/68 98 09/01/23 11:25 98.3 F 65 16 119/69 97 Room Air 09/01/23 09:34 97.2 F 66 18 130/83 98 Room Air 09/01/23 09:07 97.2 F 66 18 130/83 98 Room Air Anesthesia: Monitored Mental Status: Awake Pain Control: Satisfactory Nausea/Vomiting: None Hydration: Adequate Anesthesia-Related Issues: No Anes. Related Issues
--- NOTE | 2023-09-05 14:32 | W.PM.OPN ---
Operative Note Operative Note Date of Service: 09/05/23 Narrative: Procedure Description: EGD Indication: remote hx of duodenal ulcer Anesthesia: MAC FLEXIBLE TRANSORAL UPPER GASTROINTESTINAL ENDOSCOPY UPPER ENDOSCOPY Consent: Indications for the procedure and potential complications of bleeding, perforation, reaction to medications and missed diagnosis were discussed with the patient and informed consent was obtained. Instrument: Olympus GIF H 190 J mid size upper endoscope Monitoring: Vital signs and clinical assessment, continuous EKG monitoring, Pulse oximetry, Carbon Dioxide monitoring and blood pressure monitoring were done throughout the procedure. Procedure: The patient was placed in the left lateral decubitis position and pre-procedure medications were administered and a bite block was placed. The endoscope was inserted into the mouth and advanced under direct vision to the third part of duodenum. A careful inspection was made as the upper endoscope was withdrawn including a retroflexed examination of the proximal stomach; Findings and interventions are described below. Findings: Larynx:normal Esophagus: GE junction at 40 cm, diaphragm hiatus at 40 cm, normal mucosa Stomach: mild erythema . Biopsies were obtained. Grade 2 flap valve on retroflexed examination of the cardia. Duodenum: Normal bulb and descending duodenum, Intervention: Biopsies as noted above, Impression/Findings: gastritis PLAN: await path- if h pylori pos then treat GERD precautions
== END 2023-09-01 12:02 | disposition home or self-care (01) ==
PROVIDERS: PCP Nurse Practitioner; Visit Provider Internal Medicine Gastroenterology
PROC: 0DJ08ZZ Inspection of Upper Intestinal Tract, Via Natural or Artificial Opening Endoscopic (ICD-10-PCS; CPT 43235; principal; 2023-09-01 10:20)
DX: K21.9 Gastro-esophageal reflux disease without esophagitis (principal); K29.70 Gastritis, unspecified, without bleeding; Z87.19 Personal history of other diseases of the digestive system
CPT/HCPCS: 43239; 88305; 88313; 88342; J2704

== ENCOUNTER → 2023-09-01 08:22 | Outpatient (BNV) | payer OTHER, SELFPAY | PROVIDERS: PCP Nurse Practitioner; Visit Provider Internal Medicine Gastroenterology | DX: K29.70 Gastritis, unspecified, without bleeding (principal) | CPT/HCPCS: 43239 ==

== ENCOUNTER 2023-09-12 10:37 | Outpatient (AMB) | payer OTHER, SELFPAY ==
[2023-09-12 10:55] VITALS: BP 136/80; BMI 27.1
--- NOTE | 2023-09-12 10:55 | A.OFFVIS_ITS ---
Vital Signs 09/12/23 10:55 Height 5 ft 8 in Weight 178 lb 9.191 oz BMI 27.1 BP 136/80 Blood Pressure Location Lt brachial Position Sitting Intake Visit Reasons: s/p egd Intake Note: Patient presents to in office visit today in follow up s/p EGD. CC: Patient continues having abdominal bloating and constipation. Denies other GI symptoms today. 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 Patient will be sent for upper endoscopy occasional acid reflux depending on what he eats. Patient has had a history of peptic ulcer disease diagnosed last year. Continues to be constipated. Patient was encouraged to increase fluid intake. Patient states that he is not drinking any water. At least 2-3 bottles of water a day. Continue to take Dulcolax tablets, will start taking Colace 2 tablets every evening. I will see him after the procedure, sooner on as needed basis. Patient is agreeable to this plan and verbalizes understanding of instructions. He was given the opportunity to ask questions and all questions answered. ? Thank you for allowing me to participate in his care Medications New docusate sodium 200 mg (2 x 100 mg) PO BEDTIME 180 caps 3RF K59.00 hydrocortisone 2.5% (Proctosol HC) 1 appl ID BID-QID PRN 30 grams 2RF hemorrhoids K64.9 ENDOSCOPY: Findings: Larynx:normal Esophagus: GE junction at 40 cm, diaphragm hiatus at 40 cm, normal mucosa Stomach: mild erythema . Biopsies were obtained. Grade 2 flap valve on retroflexed examination of the cardia. Duodenum: Normal bulb and descending duodenum, Intervention: Biopsies as noted above, Impression/Findings: gastritis PLAN: await path- if h pylori pos then treat GERD precautions PATHOLOGY: Diagnosis Stomach, biopsy: Antral-type and oxyntic mucosa with mild chronic inactive inflammation; no Helicobacter organisms seen. TODAY'S VISIT Patient is here today for follow-up and to discuss upper endoscopy results. Patient denies any ill effects from anesthesia or procedure itself. Patient reports that he has been feeling better. He continues to take Nexium in the morning. Moving his bowels well with Dulcolax and Colace. Patient admits to have postprandial abdominal bloating and feeling gassy. Passing gas frequently. Patient does eat [place] food with lots of spices that include garlic and onions. Upper endoscopy and biopsy results discussed with patient. No H pylori. Mild inactive inflammation found in the stomach. No ulcers. Patient denies any other GI concerning symptoms. [facility] Medical History GERD (gastroesophageal reflux disease) Duodenal ulcer disease Kidney stones Surgical History History of esophagogastroduodenoscopy (EGD) Family History Father Diabetes Social History Household Members: Family Patient Tobacco Use Status: Never used Tobacco Review of Systems Const Denies weight gain and Denies weight loss ENT Reports no additional complaints, Denies dysphagia and Denies odynophagia Card Reports no additional complaints Resp Reports no additional complaints GI Denies abdominal pain, Denies belching, Denies melena, Denies bloating, Reports constipation (Occasional), Denies dysphagia, Denies excessive flatus, Denies dyspepsia, Reports heartburn (Occasional), Denies diarrhea, Denies loose stools, Denies nausea, Denies odynophagia and Denies vomiting Reports no additional complaints Musc Reports no additional complaints Neuro Reports no additional complaints Psych Reports no additional complaints Endo Reports no additional complaints Physical Exam Vital Signs: Last Vital Signs BP 136/80 09/12/23 10:55 BMI result Body Mass Index 27.1 Const General: healthy appearing and no acute distress Nutritional Appearance: obese Orientation/consciousness: patient oriented x3 Resp Effort & Inspection: normal respiratory effort, able to speak in complete sentences, no tracheal deviation and symmetric chest movement Auscultation: clear to auscultation bilaterally Cardio Rate: regular rate GI Inspection: Yes normal to inspection, No distended and Yes obesity Palpation (GI): Soft to palpation, not firm, nontender and No hepatosplenomegaly present Auscultation: normal bowel sounds General: Yes no CVA tenderness Back/Spine/Pelvis Back: no CVA tenderness Skin General skin exam: elasticity normal, turgor normal and dry skin Neuro General: patient oriented x3 Psych Appearance: grossly normal Mental Status: mental status grossly normal Affect: normal affect Assessment & Plan Assessment & Plan (1) GERD (gastroesophageal reflux disease): Code(s): K21.9 - Gastro-esophageal reflux disease without esophagitis Category: Medical Qualifiers: Esophagitis presence: esophagitis presence not specified Qualified Code(s): K21.9 - Gastro-esophageal reflux disease without esophagitis (2) Duodenal ulcer disease: Code(s): K26.9 - Duodenal ulcer, unspecified as acute or chronic, without hemorrhage or perforation Category: Medical (3) Constipation: Code(s): K59.00 - Constipation, unspecified Qualifiers: Constipation type: slow transit constipation Qualified Code(s): K59.01 - Slow transit constipation (4) Postprandial abdominal bloating: Code(s): R14.0 - Abdominal distension (gaseous) (5) Hemorrhoid: Code(s): K64.9 - Unspecified hemorrhoids Qualifiers: Hemorrhoid type: unspecified Qualified Code(s): K64.9 - Unspecified hemorrhoids Plan Continue Nexium daily. Avoid dietary triggers and late night snacking. Staying upright for minimum 3 hours after meals discussed with patient. Patient can continue Dulcolax and Colace. Continue Proctosol for hemorrhoids. Referral to surgery per patient's request. I will see him in 3 months, sooner on as needed basis. Patient is agreeable this plan and verbalizes understanding of instructions. He was given the opportunity to ask questions and all questions answered. Thank you for allowing me to participate in his care Orders: Referrals General Surgery Referral K64.9 - Unspecified hemorrhoids Medications: New bisacodyl (Dulcolax (bisacodyl)) 10 mg (2 x 5 mg) PO BEDTIME 180 tabs 4RF Refilled esomeprazole magnesium (Nexium) 40 mg PO DAILY 90 caps 1RF K21.9 - Gastro-esoph ageal reflux disease without esophagitis Coding Level of Care Code Est Pt Level 4 (72153) Diagnoses Gastroesophageal reflux disease, unspecified whether esophagitis present K21.9 Esophagitis presence: esophagitis presence not specified Duodenal ulcer disease K26.9 Slow transit constipation K59.01 Constipation type: slow transit constipation Postprandial abdominal bloating R14.0 Hemorrhoids, unspecified hemorrhoid type K64.9 Hemorrhoid type: unspecified Time Spent (min) 35 Comment 20 minutes spent with patient and additional 15 minutes spent reviewing his records
== END 2023-09-12 11:23 | disposition home or self-care (01) ==
PROVIDERS: PCP Nurse Practitioner; Visit Provider Nurse Practitioner Family
DX: K21.9 Gastro-esophageal reflux disease without esophagitis (principal); K26.9 Duodenal ulcer, unspecified as acute or chronic, without hemorrhage or perforation; K59.01 Slow transit constipation; R14.0 Abdominal distension (gaseous); K64.9 Unspecified hemorrhoids
CPT/HCPCS: 99214

== ENCOUNTER → 2023-09-12 10:37 | Outpatient (BNVA) | payer OTHER, SELFPAY | PROVIDERS: PCP Nurse Practitioner; Visit Provider Nurse Practitioner Family | DX: K21.9 Gastro-esophageal reflux disease without esophagitis (principal); K26.9 Duodenal ulcer, unspecified as acute or chronic, without hemorrhage or perforation; K59.01 Slow transit constipation; K64.9 Unspecified hemorrhoids; R14.0 Abdominal distension (gaseous) | CPT/HCPCS: 99212 ==

== ENCOUNTER 2023-09-15 12:44 | Outpatient (REF) | payer OTHER, SELFPAY ==
[2023-09-15 13:07] LABS: MANUAL DIFF FLAG NO
[2023-09-15 14:09] LABS: Basophils Absolute Auto 0.1 X10*3/uL (0.0-0.2); Basophils Percent Auto 0.8 % (0-2); Eosinophils Absolute Auto 0.5 X10*3/uL (0.0-0.4); Eosinophils Percent Auto 7.7 % (0-4); Hematocrit 47.7 % (42.0-52.0); Hemoglobin 15.2 g/dl (14.0-18.0); Imm Gran Abs Auto 0.01 X10*3/uL (0.00-0.03); Imm Gran Pct Auto 0.2 % (0.0-0.4); Lymphocytes Absolute Auto 2.8 X10*3/uL (1.2-4.9); Lymphocytes Percent Auto 41.7 % (20-40); Mean Corpuscular HGB Conc 31.9 g/dl (31.0-36.0); Mean Corpuscular Hemoglobin 25.5 pg (27.0-33.0); Mean Corpuscular Volume 80.2 fL (80.0-98.0); Mean Platelet Volume 12.1 fL (9.4-12.4); Monocytes Absolute Auto 0.5 X10*3/uL (0.1-1.2); Monocytes Percent Auto 7.6 % (2-11); Neutrophils Absolute Auto 2.8 x10*3/uL (2.0-8.3); Platelet Count 203 X10*3/uL (160-400); Red Blood Count 5.95 X10*6/uL (4.60-5.80); Red Cell Distribution Width 13.2 % (11.0-16.0); White Blood Count 6.6 X10*3/uL (4.8-10.8)
[2023-09-15 14:49] LABS: Alanine Aminotransferase 21 U/L (0-40); Aspartate Amino Transferase 24 U/L (5-37); Estimated Glomerular Filt Rate > 60
[2023-09-16 08:45] LABS: Syphilis Screen Nonreactive (Nonreactive)
[2023-09-19 14:58] LABS: Hepatitis B Viral DNA Qn - cp <1.00 DETECTED Log IU/mL (NOT DETECTED); Hepatitis B Viral DNA Qn-IU/mL <10 DETECTED IU/mL (NOT DETECTED)
[2023-09-21 18:13] LABS: HBV Genotype NOT DETECTED
[2023-09-28 02:47] LABS: FIB-ALT 18 U/L (9-46); FIB-Alpha-2-Macroglobulin 192 mg/dL (106-279); FIB-Apolipoprotein A1 124 mg/dL (94-176); FIB-GGT 26 U/L (3-70); FIB-Haptoglobin 156 mg/dL (43-212); FIB-Total Bilirubin 0.3 mg/dL (0.2-1.2); Liver Fibrosis Stage F0; Nec Inflam Act Grade A0; Nec Inflam Act Score 0.05
== END 2023-09-15 12:45 | disposition home or self-care (01) ==
LOC: HO.LAB 12:44
PROVIDERS: PCP Nurse Practitioner; Visit Provider Internal Medicine Infectious Disease
DX: B19.10 Unspecified viral hepatitis B without hepatic coma (principal)
CPT/HCPCS: 36415; 81596; 82565; 84450; 84460; 85025; 86780; 87517; 87912

== ENCOUNTER 2023-09-28 11:23 | Outpatient (AMB) | payer OTHER, SELFPAY ==
[2023-09-28 11:28] VITALS: BP 124/73; PULSE 82; BMI 27.1
--- NOTE | 2023-09-28 11:28 | A.OFFVIS_ITS ---
Vital Signs 09/28/23 11:28 Height 5 ft 8 in Weight 178 lb BMI 27.1 BP 124/73 Blood Pressure Location Rt brachial Position Sitting Pulse 82 Intake Visit Reasons: Hemorrhoids Intake Note: This patient presents for an assessment for Hemorrhoids. Patient c/o; reports no rectal bleeding, reports discomfort. 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 He describes periodic pain and bleeding from his hemorrhoids. He said that he has had this for a few years now. He had a procedure done in [place] about a year ago which she describes as an injection. He says that this injection on his hemorrhoids had helped his hemorrhoid symptoms improve significantly although he still has some periodic bleeding He says that hemorrhoids have been relatively asymptomatic for the past days. He also takes stool softeners. [facility] Medical History (Updated 09/28/23 @ 12:02 by Mike Rush MD) Bleeding hemorrhoids Hepatitis B GERD (gastroesophageal reflux disease) Duodenal ulcer disease Kidney stones Surgical History History of esophagogastroduodenoscopy (EGD) Family History Father Diabetes Social History Household Members: Family Patient Tobacco Use Status: Never used Tobacco Review of Systems Const Denies chills and Denies fever(s) Card Denies chest pain, Denies dyspnea and Denies dyspnea on exertion Resp Denies cough, Denies dyspnea and Denies dyspnea on exertion GI Reports hematochezia and Denies change in bowel habits Denies hematuria and Denies difficulty urinating Musc Denies back pain and Denies limited range of motion Neuro Denies focal weakness and Denies convulsions Psych Denies depression and Denies mood swings Physical Exam Vital Signs: Last Vital Signs Pulse 82 09/28/23 11:28 BP 124/73 09/28/23 11:28 BMI result Body Mass Index 27.1 Const General: comfortable and no acute distress Orientation/consciousness: patient oriented x3 Neck Neck: Yes no lymphadenopathy Resp Auscultation: clear to auscultation bilaterally Cardio Rhythm: regular rhythm GI Palpation (GI): Soft to palpation, nontender and no guarding Neuro General: patient oriented x3 Office Procedures Anoscopy He was in justo-knife position. The anoscope was gently inserted. A full examination of the anal canal was done. He was tender with insertion of the s cope. There was note of a hemorrhoidal column on the right side a mix of internal external. There was a little bit of blood. There was a little bit of induration on this area on digital exam. He had tenderness on digital exam and anoscopy as well. [id number] Assessment & Plan Assessment & Plan (1) Bleeding hemorrhoids: Code(s): K64.9 - Unspecified hemorrhoids Category: Medical Plan: He describes periodic pain and bleeding with this hemorrhoids. He said that he did have an injection of his hemorrhoids in [place] last year and seemed to have helped but he still continues to have this episodes. I reviewed with him the technique of hemorrhoidectomy. I explained the risks including but not limited to bleeding, infections, postop pain, as well as the benefits and alternatives. I discussed with him what to expect postoperatively He says he is undecided at this time. He said he will call me once he decides to proceed with hemorrhoidectomy. Coding Level of Care Code New Pt Level 3 (22935) Diagnoses Bleeding hemorrhoids K64.9 CPT Codes Details - CPT: 68045-[id number] ([id number])
== END 2023-09-28 12:00 | disposition home or self-care (01) ==
PROVIDERS: PCP Nurse Practitioner; Referring Provider Nurse Practitioner Family; Visit Provider Surgery
DX: K64.9 Unspecified hemorrhoids (principal)
CPT/HCPCS: 46600; 99203

== ENCOUNTER → 2023-09-28 11:23 | Outpatient (BNVA) | payer OTHER, SELFPAY | PROVIDERS: PCP Nurse Practitioner; Referring Provider Nurse Practitioner Family; Visit Provider Surgery | DX: K64.9 Unspecified hemorrhoids (principal) | CPT/HCPCS: 46600; 99202 ==

== ENCOUNTER 2023-11-21 09:52 | Outpatient (AMB) | payer OTHER, SELFPAY ==
[2023-11-21 09:54] VITALS: BP 139/79; PULSE 92; BMI 27.4
--- NOTE | 2023-11-21 09:54 | MHC.OFFVIS ---
Vital Signs 11/21/23 09:54 Height 5 ft 8 in Weight 180 lb BMI 27.4 BP 139/79 Blood Pressure Location Rt brachial Position Sitting Pulse 92 Intake Visit Reasons: Painful hemorrhoids Intake Note: This patient presents for an assessment for painful hemorrhoids. Pt c/o; reports pain, reports rectal bleeding, reports unable to sit for prolong periods of time. 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 I had seen him last Aug, 2023 for pain and bleeding with this hemorrhoids. He was noted to have internal external hemorrhoids at that time which appeared to be edematous and indurated. He did not want to proceed with hemorrhoidectomy then He continues to have pain and is now uncomfortable with sitting down. He says his pain is worse with bowel movements as well He says he has hemorrhoids feel very swollen. He now wants to proceed with hemorrhoidectomy. [facility] Medical History Bleeding hemorrhoids Hepatitis B GERD (gastroesophageal reflux disease) Duodenal ulcer disease Kidney stones Surgical History History of esophagogastroduodenoscopy (EGD) Family History Father Diabetes Social History Household Members: Family Patient Tobacco Use Status: Never used Tobacco Review of Systems Const Denies chills and Denies fever(s) Card Denies chest pain, Denies dyspnea and Denies dyspnea on exertion Resp Denies cough, Denies dyspnea and Denies dyspnea on exertion GI Reports hematochezia and Denies change in bowel habits Denies hematuria and Denies difficulty urinating Musc Denies back pain and Denies limited range of motion Neuro Denies focal weakness and Denies convulsions Psych Denies depression and Denies mood swings Physical Exam Vital Signs: Last Vital Signs Pulse 92 11/21/23 09:54 BP 139/79 11/21/23 09:54 BMI result Body Mass Index 27.4 Const General: comfortable and no acute distress Orientation/consciousness: patient oriented x3 Neck Neck: Yes no lymphadenopathy Resp Auscultation: clear to auscultation bilaterally Cardio Rhythm: regular rhythm GI Other: Internal external hemorrhoids on both the left and right side, tender to touch, unable to tolerate digital exam or anoscopy Palpation (GI): Soft to palpation, nontender and no guarding Neuro General: patient oriented x3 Office Procedures Anoscopy He was in justo-knife position. The anoscope was gently inserted. A full examination of the anal canal was done. [id number] Assessment & Plan Assessment & Plan (1) Bleeding hemorrhoids: Code(s): K64.9 - Unspecified hemorrhoids Category: Medical Plan: He has significant pain and bleeding with internal external hemorrhoids. He now wants to proceed with hemorrhoidectomy in view of his severe symptoms I had a long discussion with him about the technique of exam under anesthesia and hemorrhoidectomy. I explained the risks including but not limited to bleeding, infections, poor healing, postop pain, sphincter dysfunction, as well as the benefits and alternatives. I also reviewed with him what to expect postoperatively. He wants to proceed. Coding Level of Care Code Est Pt Level 3 (30622) Diagnoses Bleeding hemorrhoids K64.9 CPT Codes Details - CPT: 83752-[id number] ([id number])
== END 2023-11-21 10:09 | disposition home or self-care (01) ==
PROVIDERS: PCP Nurse Practitioner; Visit Provider Surgery
DX: K64.9 Unspecified hemorrhoids (principal)
CPT/HCPCS: 46600; 99213

== ENCOUNTER → 2023-11-21 09:52 | Outpatient (BNVA) | payer OTHER, SELFPAY | PROVIDERS: PCP Nurse Practitioner; Visit Provider Surgery | DX: K64.9 Unspecified hemorrhoids (principal) | CPT/HCPCS: 46600; 99212 ==

== ENCOUNTER 2023-11-29 07:09 | Day surgery (SDC) | payer OTHER, SELFPAY ==
--- NOTE | 2023-11-28 09:57 | HO.ANESPROP2 ---
Documented by User: Inge Lozano NP 11/28/23 09:58 HPI - Anesthesia Eval Consult details Narrative: 28yo M for EUA,Hemorrhoidectomy,possible lateral internal sphincterotomy [facility] Active Problems Active Problems: All Active Problems Bleeding hemorrhoids (Acute) Hepatitis B (Acute) GERD (gastroesophageal reflux disease) (Acute) Duodenal ulcer disease (Acute) Past Medical History Medical History (Updated 11/29/23 @ 08:01 by Azul Henry, RN) Bleeding hemorrhoids Hepatitis B GERD (gastroesophageal reflux disease) Duodenal ulcer disease Kidney stones Family History Family History Father Diabetes Family history of problems with anesthesia: No Surgical History Surgical History History of esophagogastroduodenoscopy (EGD) History of Problems with Anesthesia: No Social History Social History Household Members: Family Patient Tobacco Use Status: Never used Tobacco Use of substances other than those prescribed or required for medical reasons: No Are you DNR?: No Advance Directives: No Advance Directives Information Provided: Yes Meds Allergies Allergy/AdvReac Type Severity Reaction Status Date / Time No Known Allergies Allergy Verified 11/29/23 07:31 Home Medications ?Medication ?Instructions ?Recorded ?Confirmed ?Last Taken ?Type entecavir 0.5 mg tablet 0.5 mg PO DAILY 07/25/23 11/29/23 Unknown History ferrous gluconate 324 mg (38 mg 324 mg PO DAILY 09/12/23 11/29/23 11/28/23 History iron) tablet Assessment and Plan Assessment Anesthesia Assessment: Chart Reviewed Final Anesthetic Review Family History of Problems with Anesthesia: No History of Problems with Anesthesia: No Documented by User: James Dawn MD 11/29/23 08:16 PMFSH Past Medical History Medical History (Updated 11/29/23 @ 08:01 by Azul Henry, RN) Bleeding hemorrhoids Hepatitis B GERD (gastroesophageal reflux disease) Duodenal ulcer disease Kidney stones Family History Family History Father Diabetes Surgical History Surgical History History of esophagogastroduodenoscopy (EGD) Social History Social History Household Members: Family Patient Tobacco Use Status: Never used Tobacco Use of substances other than those prescribed or required for medical reasons: No Are you DNR?: No Advance Directives: No Advance Directives Information Provided: Yes Meds Allergies Allergy/AdvReac Type Severity Reaction Status Date / Time No Known Allergies Allergy Verified 11/29/23 07:31 Home Medications ?Medication ?Instructions ?Recorded ?Confirmed ?Last Taken ?Type entecavir 0.5 mg tablet 0.5 mg PO DAILY 07/25/23 11/29/23 Unknown History ferrous gluconate 324 mg (38 mg 324 mg PO DAILY 09/12/23 11/29/23 11/28/23 History iron) tablet Exam Airway Mallampati Class: II TM Dist: <=3cm Neck ROM: Full Loose/Missing/Broken Teeth: No Heart: ok Lungs: ok Assessment and Plan Assessment Anesthesia Assessment: Anesthesia Plan Discussed Final Anesthetic Review NPO: Yes ASA Class: II Final Preanesthetic Review: No Changes in Pt Med Stat, Meds/Allgs Chart Reviewed, Consent Obtained/Reviewed and Anes Risks/Benef Reviewed Patient Risk: Low Procedure Risk: Intermediate Anesthetic Plan Anesthetic Plan: GA and Agree w/ Assess. and Plan Disposition: Standard PACU
[2023-11-29] VITALS (11 sets, daily range): BP systolic 100–139; BP diastolic 62–84; PULSE 60–75; RESP 14–16; TEMP 36.9–37.2; O2SAT 93–99; BMI 27.2
[2023-11-29] MEDS: Lactated Ringers 1,000 ML 100 ML IVCONT (07:59)
--- NOTE | 2023-11-29 08:06 | MHC.SHP ---
Pre-Procedural Eval Section A - 24 Hr Update-Section A only Date of Service: 11/29/23 The patient is an INPATIENT: No Changes since office visit: No Cold of Flu in the past 2 weeks, No New Medical Problems, No Changes in Medication and No Patient answered all questions The patient has been examined within 24 hours of the surgical procedure. The History & Physical has been completed within 30 days and I have reviewed it.: Yes Section B - Complete if H&P > 30 days Chief Complaint: Unspecified hemorrhoids Allergies: Allergies Allergy/AdvReac Type Severity Reaction Status Date / Time No Known Allergies Allergy Verified 11/29/23 07:31 Plan I have reviewed the history and physical and performed a pertinent physical examination on my patient. No changes have occurred unless specified. Time Spent With Patient Time: Total time managing care of this patient today ____ minutes.
--- NOTE | 2023-11-29 09:02 | P.OP_ITS ---
Operative Note Operative Note Date of Service: 11/29/23 Narrative: Preop diagnosis: Bleeding and painful hemorrhoids Postop diagnosis: 1. Large friable mass in the distal anoderm extending to the entire anal canal posteriorly, with deep ulceration suspicious for a carcinoma 2. External hemorrhoids anteriorly Procedure: Exam under anesthesia, wedge biopsies of the posterior anal mass, hemorrhoidectomy of the anterior external hemorrhoids Surgeon: Mike Rush MD Investment Specialist: APRYL Akhtar student The patient is a 28-year-old male who I had seen in the office for severe pain and bleeding of external hemorrhoids. This has persisted on follow-up so I recommended proceeding with exam under anesthesia with likely hemorrhoidectomy and lateral sphincterotomy. I could not do an exam in the office in view of his pain and tenderness. Understood the planned procedure as well as the risks, benefits, and alternatives He was brought to the operating room. He was placed in prone justo-knife position under general anesthesia via laryngeal mask airway. The buttocks were retracted with wide tape laterally. The perianal area was prepped and draped in the usual sterile fashion. A surgical time-out was done. The patient received Cefotan 2 g IV preoperatively Examination of the anal orifice revealed what appeared to be an external hemorrhoid anteriorly. There was note of a larger mass posteriorly. I inserted the Terra Hrenández retractor and examined the anal canal circumferentially. On the posterior anal canal was note of a large friable mass with deep ulceration involved with the entire anoderm and extending proximally. Parts of the mass fell off with retraction so these were sent as a specimen. Multiple wedge tissue biopsies were done. This was suspicious for anal squamous cell carcinoma. The external hemorrhoid on the anterior aspect was about 1 cm in diameter. We proceeded with the hemorrhoidectomy. This area. A [id number] stitch was applied at the pedicle. I made an incision around this hemorrhoidal column to the perianal skin with a blade 15. I excised this hemorrhoidal column above the plane of the sphincters using scissors. I closed the incision with a running chromic 3-0 stitch. There was note of good hemostasis I then applied a rolled Gelfoam into the anal canal. I infiltrated the perianal area with Marcaine 0.5% for postop analgesia The patient was then completed The patient tolerated procedure well. There were no immediate complications. Initial and final counts of sponges and instruments were correct. Estimated blood loss about 25 cc The patient was extubated without difficulty and transferred to the recovery room with stable vital signs. I will follow up on the path report and we will discuss with the patient as well as this available.
[2023-11-29] MEDS: fentaNYL citrate/PF 100 MCG/2 ML VIAL 50 MCG IVPUSH ×2 (09:35→09:41)
== END 2023-11-29 10:35 | disposition home or self-care (01) ==
PROVIDERS: PCP Nurse Practitioner; Visit Provider Surgery
PROC: (CPT 45100; principal; 2023-11-29 08:30)
DX: K64.9 Unspecified hemorrhoids (principal); K62.89 Other specified diseases of anus and rectum; C21.1 Malignant neoplasm of anal canal; C77.9 Secondary and unspecified malignant neoplasm of lymph node, unspecified; K62.6 Ulcer of anus and rectum; K21.9 Gastro-esophageal reflux disease without esophagitis; K26.9 Duodenal ulcer, unspecified as acute or chronic, without hemorrhage or perforation; B19.10 Unspecified viral hepatitis B without hepatic coma; Z79.899 Other long term (current) drug therapy
CPT/HCPCS: 45100; 46250; 88304; 88305; 88341; 88342; J1885; J2250; J2405; J2704; J2795; J3010

== ENCOUNTER → 2023-11-29 07:09 | Outpatient (BNV) | payer OTHER, SELFPAY | PROVIDERS: PCP Nurse Practitioner; Visit Provider Surgery | DX: C21.1 Malignant neoplasm of anal canal (principal); K64.9 Unspecified hemorrhoids | CPT/HCPCS: 45100; 46999 ==

== ENCOUNTER 2023-12-12 10:25 | Outpatient (AMB) | payer OTHER, SELFPAY ==
--- NOTE | 2023-12-12 10:26 | MHC.OFFVIS ---
Intake Visit Reasons: S/P hemorrhoidectomy Intake Note: This patient presents for a post-op assessment status post hemorrhoidectomy. Pt c/o: reports no complaints. Abrasive Sawyer Required: No Accompanied by: Other Relationship Allergies No Known Allergies Allergy (Verified 12/12/23 10:33) Medication List - Last Reconciled 12/12/23 by Mike Rush MD bisacodyl (Dulcolax (bisacodyl)) 10 mg (2 x 5 mg) PO BEDTIME docusate sodium (Colace) 100 mg PO BID docusate sodium 200 mg (2 x 100 mg) PO BEDTIME entecavir 0.5 mg PO DAILY esomeprazole magnesium (Nexium) 40 mg PO DAILY ferrous gluconate 324 mg PO DAILY hydrocortisone 2.5% (Proctosol HC) 1 appl AR BID-QID PRN ibuprofen 600 mg PO Q6H PRN oxycodone-acetaminophen 5-325 mg (Percocet) 1 tab PO Q4-6H PRN HPI HPI S/P hemorrhoidectomy: Details: He had undergone exam under anesthesia and biopsy of an anal lesion last 11/25/2023. He continues to have pain which she has had for over a year now. He also sees small amounts of blood periodically. He is uncomfortable with sitting down. [facility] Medical History Rectal adenocarcinoma Bleeding hemorrhoids Hepatitis B GERD (gastroesophageal reflux disease) Duodenal ulcer disease Kidney stones Surgical History History of hemorrhoidectomy (~11/29/23) History of esophagogastroduodenoscopy (EGD) Family History Father Diabetes Social History Household Members: Family Patient Tobacco Use Status: Never used Tobacco Review of Systems Const Denies chills and Denies fever(s) Card Denies chest pain at rest Resp Denies cough GI Reports hematochezia Physical Exam Const Other: Unable to sit down comfortably General: no acute distress Resp Effort & Inspection: normal respiratory effort Cardio Rate: regular rate GI Palpation (GI): Soft to palpation and not firm Assessment & Plan Assessment & Plan (1) Rectal adenocarcinoma: Code(s): C20 - Malignant neoplasm of rectum Category: Medical Plan: He has had pain and bleeding in the anus for about a year now. I would take him him to the OR an exam under anesthesia for possible hemorrhoids last November 24. Unfortunately, he had a large ulcerating mass in the entire anal canal extending to the anal verge. Biopsies of this shows a rectal adenocarcinoma and not a squamous cell carcinoma and I have reviewed this with the pathologist. He has locally advanced carcinoma at this time and the ulcer seems deep and extending into the sphincters. I will order for a CAT scan of the abdomen pelvis and the chest to check for metastatic disease. I will refer him to the oncologist as well. He will likely require neoadjuvant chemotherapy and radiation because of this locally advanced carcinoma. He may need to have a colonoscopy as well for full evaluation of the rest of the colon. Orders: Orders CT abdomen pelvis w IV con Today C20 - Malignant neoplasm of rectum CT chest w IV con Today C20 - Malignant neoplasm of rectum Blood Urea Nitrogen Today C20 - Malignant neoplasm of rectum Creatinine Today C20 - Malignant neoplasm of rectum Referrals Hematology & Oncology Referral C20 - Malignant neoplasm of rectum Coding Level of Care Code Est Pt Level 4 (55182) Diagnoses Rectal adenocarcinoma C20
== END 2023-12-12 10:47 | disposition home or self-care (01) ==
PROVIDERS: PCP Nurse Practitioner; Visit Provider Surgery
DX: C20 Malignant neoplasm of rectum (principal)
CPT/HCPCS: 99024

== ENCOUNTER 2023-12-12 10:25 | Outpatient (AMB) | payer OTHER, SELFPAY ==
--- NOTE | 2023-12-12 10:32 | A.OFFVIS_ITS ---
Vital Signs 12/12/23 10:42 Height 5 ft 8 in Weight 179 lb BMI 27.2 BP 144/80 H Blood Pressure Location Lt brachial Position Sitting Pulse 82 Intake Visit Reasons: 3 month follow up Intake Note: Patient 3 month follow up for Constipation Patient cc: constipation is much better not GI issues for today Operations Mgr Required: No Accompanied by: Family/Other Allergies No Known Allergies Allergy (Verified 12/12/23 10:33) HPI HPI 3 month follow up: Details: LAST VISIT GERD (gastroesophageal reflux disease) Duodenal ulcer disease Constipation Postprandial abdominal bloating Hemorrhoid Plan Continue Nexium daily. Avoid dietary triggers and late night snacking. Staying upright for minimum 3 hours after meals discussed with patient. Patient can continue Dulcolax and Colace. Continue Proctosol for hemorrhoids. Referral to surgery per patient's request. I will see him in 3 months, sooner on as needed basis. Patient is agreeable this plan and verbalizes understanding of instructions. He was given the opportunity to ask questions and all questions answered. ? Thank you for allowing me to participate in his care Orders Referrals General Surgery Referral K64.9 Medications New bisacodyl (Dulcolax (bisacodyl)) 10 mg (2 x 5 mg) PO BEDTIME 180 tabs 4RF Refilled esomeprazole magnesium (Nexium) 40 mg PO DAILY 90 caps 1RF K21.9 TODAY'S VISIT Patient is here today for follow-up. Patient reports that he continues to have constipation. Just recently saw Dr. Rush and had surgery what was going to be hemorrhoidectomy. Biopsy eat area close to hemorrhoids that looks suspicious and rectal carcinoma found. Patient had appointment today just before his tiffany ointment with me and was told this news. Patient is very upset about this finding. Patient denies any family history of CRC. Patient will need to go for colonoscopy as well to see oncologist. Message sent to oncologist to see if he can have his appointment made as soon as possible. Patient denies any nausea or vomiting me. No issues with anesthesia in the past. No history of sleep apnea. Not on any anticoagulation medication. Patient is taking esomeprazole and reports that his symptoms of acid reflux are suppressed [facility] Medical History Rectal adenocarcinoma Bleeding hemorrhoids Hepatitis B GERD (gastroesophageal reflux disease) Duodenal ulcer disease Kidney stones Surgical History History of hemorrhoidectomy (~11/29/23) History of esophagogastroduodenoscopy (EGD) Family History Father Diabetes Social History Household Members: Family Patient Tobacco Use Status: Never used Tobacco Review of Systems Const Denies weight gain and Denies weight loss ENT Reports no additional complaints, Denies dysphagia and Denies odynophagia Card Reports no additional complaints Resp Reports no additional complaints GI Denies abdominal pain, Denies belching, Denies melena, Denies bloating, Reports constipation (Occasional), Denies dysphagia, Denies excessive flatus, Denies dyspepsia, Reports heartburn, Denies diarrhea, Denies loose stools, Denies nausea, Denies odynophagia and Denies vomiting Reports no additional complaints Musc Reports no additional complaints Neuro Reports no additional complaints Psych Reports no additional complaints Endo Reports no additional complaints Physical Exam Vital Signs: Last Vital Signs Pulse 82 12/12/23 10:42 BP 144/80 H 12/12/23 10:42 BMI result Body Mass Index 27.2 Const General: healthy appearing and no acute distress Nutritional Appearance: obese Orientation/consciousness: patient oriented x3 Resp Effort & Inspection: normal respiratory effort, able to speak in complete sentences, no tracheal deviation and symmetric chest movement Auscultation: clear to auscultation bilaterally Cardio Rate: regular rate GI Inspection: Yes normal to inspection, No distended and Yes obesity Palpation (GI): Soft to palpation, not firm, nontender and No hepatosplenomegaly present Auscultation: normal bowel sounds General: Yes no CVA tenderness Back/Spine/Pelvis Back: no CVA tenderness Skin General skin exam: elasticity normal, turgor normal and dry skin Neuro General: patient oriented x3 Psych Appearance: grossly normal Mental Status: mental status grossly normal Affect: normal affect Assessment & Plan Assessment & Plan (1) Bleeding hemorrhoids: Code(s): K64.9 - Unspecified hemorrhoids Category: Medical (2) Rectal adenocarcinoma: Code(s): C20 - Malignant neoplasm of rectum Category: Medical (3) GERD (gastroesophageal reflux disease): Code(s): K21.9 - Gastro-esophageal reflux disease without esophagitis Category: Medical Qualifiers: Esophagitis presence: esophagitis presence not specified Qualified Code(s): K21.9 - Gastro-esophageal reflux disease without esophagitis (4) Screen for colon cancer: Code(s): Z12.11 - Encounter for screening for malignant neoplasm of colon (5) Chronic idiopathic constipation: Code(s): K59.04 - Chronic idiopathic constipation Plan Just diagnosed with rectal carcinoma. Patient is quite upset about this news. Patient will be scheduled for colonoscopy. Managed to schedule patient in for this Tuesday. Patient will do his prep tomorrow. Split MiraLax prep and Dulcolax. Patient is complaining of constipation he will take additional Dulcolax today. Clear liquid diet tomorrow. History of hep B on treatment. Patient denies any family history of colorectal cancer. Patient will speak to his family members about going for colonoscopy screening early. Message to the oncologist about seen patient sooner. Patient will be following up with Dr. Simmons after his colonoscopy end of this month. Patient will call our office if he will have any GI concerning symptoms. He is agreeable to current plan of care and verbalizes understanding of instructions. He was given the opportunity to ask questions and all questions answered. Thank you for allowing me to participate in his care Medications: New polyethylene glycol 3350 (Miralax) 17 grams PO DAILY 510 grams 2RF polyethylene glycol 3350 (Miralax) As directed by [facility]ology [facility] at [facility] 238 grams PO ONCE 238 grams 0RF Z12.11 - Encounter for screening for malignant neoplasm of colon Refilled bisacodyl (Dulcolax (bisacodyl)) 10 mg (2 x 5 mg) PO BEDTIME 180 tabs 4RF Coding Level of Care Code Est Pt Level 4 (25241) Diagnoses Bleeding hemorrhoids K64.9 Rectal adenocarcinoma C20 Gastroesophageal reflux disease, unspecified whether esophagitis present K21.9 Esophagitis presence: esophagitis presence not specified Screen for colon cancer Z12.11 Chronic idiopathic constipation K59.04 Time Spent (min) 40 Comment 25 minutes spent with patient and additional 15 minutes spent reviewing his records
[2023-12-12 10:42] VITALS: BP 144/80; PULSE 82; BMI 27.2
== END 2023-12-12 12:35 | disposition home or self-care (01) ==
PROVIDERS: PCP Nurse Practitioner; Visit Provider Nurse Practitioner Family
DX: K64.9 Unspecified hemorrhoids (principal); C20 Malignant neoplasm of rectum; K21.9 Gastro-esophageal reflux disease without esophagitis; Z12.11 Encounter for screening for malignant neoplasm of colon; K59.04 Chronic idiopathic constipation
CPT/HCPCS: 99214

== ENCOUNTER 2023-12-12 10:25 | Outpatient (REF) | payer OTHER, SELFPAY ==
[2023-12-12 12:39] LABS: Blood Urea Nitrogen 15 mg/dL (9-16); Estimated Glomerular Filt Rate > 60
== END 2023-12-12 10:26 | disposition home or self-care (01) ==
LOC: HO.LAB 10:25
PROVIDERS: PCP Nurse Practitioner; Visit Provider Surgery
DX: C20 Malignant neoplasm of rectum (principal); K64.9 Unspecified hemorrhoids; K21.9 Gastro-esophageal reflux disease without esophagitis; Z12.11 Encounter for screening for malignant neoplasm of colon; K59.04 Chronic idiopathic constipation
CPT/HCPCS: 36415; 82565; 84520; 99212

== ENCOUNTER → 2023-12-13 09:00 | Outpatient (BNV) | payer OTHER, SELFPAY | PROVIDERS: PCP Nurse Practitioner; Referring Provider Surgery; Visit Provider Internal Medicine Medical Oncology | DX: C20 Malignant neoplasm of rectum (principal) | CPT/HCPCS: 99204; 99213 ==

== ENCOUNTER 2023-12-14 09:26 | Day surgery (SDC) | payer OTHER, SELFPAY ==
--- NOTE | 2023-12-13 11:39 | HO.ANESPROP2 ---
Documented by User: Inge Lozano NP 12/13/23 11:41 HPI - Anesthesia Eval Consult details Narrative: 28yo M for Colonoscopy s/p hemorrhoidectomy 11/29/23 with GA-LMA 4 PMFSH Active Problems Active Problems: All Active Problems Rectal adenocarcinoma (Acute) Bleeding hemorrhoids (Acute) Hepatitis B (Acute) GERD (gastroesophageal reflux disease) (Acute) Duodenal ulcer disease (Acute) Past Medical History Medical History Rectal adenocarcinoma Bleeding hemorrhoids Hepatitis B GERD (gastroesophageal reflux disease) Duodenal ulcer disease Kidney stones Family History Family History Father Diabetes Family history of problems with anesthesia: No Surgical History Surgical History History of hemorrhoidectomy (~11/29/23) History of esophagogastroduodenoscopy (EGD) History of Problems with Anesthesia: No Social History Social History (Updated 12/13/23 @ 13:11 by Napoleon Clark) Household Members: Family Patient Tobacco Use Status: Never used Tobacco Use of substances other than those prescribed or required for medical reasons: No Are you DNR?: No Advance Directives: No Advance Directives Information Provided: Yes service: No Current occupational status: employed Meds Allergies Allergy/AdvReac Type Severity Reaction Status Date / Time No Known Allergies Allergy Verified 12/13/23 13:11 Home Medications ?Medication ?Instructions ?Recorded ?Confirmed ?Last Taken ?Type entecavir 0.5 mg tablet 0.5 mg PO DAILY 07/25/23 12/13/23 Unknown History ferrous gluconate 324 mg (38 mg 324 mg PO DAILY 09/12/23 12/13/23 11/28/23 History iron) tablet Assessment and Plan Assessment Anesthesia Assessment: Chart Reviewed Final Anesthetic Review Family History of Problems with Anesthesia: No History of Problems with Anesthesia: No Documented by User: Stacey Beaver MD 12/14/23:51 [facility] Past Medical History Medical History Rectal adenocarcinoma Bleeding hemorrhoids Hepatitis B GERD (gastroesophageal reflux disease) Duodenal ulcer disease Kidney stones Family History Family History Father Diabetes Surgical History Surgical History History of hemorrhoidectomy (~11/29/23) History of esophagogastroduodenoscopy (EGD) Social History Social History (Updated 12/13/23 @ 13:11 by Napoleon Clark) Household Members: Family Patient Tobacco Use Status: Never used Tobacco Use of substances other than those prescribed or required for medical reasons: No Are you DNR?: No Advance Directives: No Advance Directives Information Provided: Yes service: No Current occupational status: employed Meds Allergies Allergy/AdvReac Type Severity Reaction Status Date / Time No Known Allergies Allergy Verified 12/13/23 13:11 Home Medications ?Medication ?Instructions ?Recorded ?Confirmed ?Last Taken ?Type entecavir 0.5 mg tablet 0.5 mg PO DAILY 07/25/23 12/13/23 Unknown History ferrous gluconate 324 mg (38 mg 324 mg PO DAILY 09/12/23 12/13/23 11/28/23 History iron) tablet Exam Airway Mallampati Class: II TM Dist: >3cm Neck ROM: Full Heart: rrr Lungs: cta Assessment and Plan Assessment Anesthesia Assessment: Anesthesia Plan Discussed Final Anesthetic Review NPO: Yes ASA Class: II Final Preanesthetic Review: No Changes in Pt Med Stat, Meds/Allgs Chart Reviewed and Consent Obtained/Reviewed Patient Risk: Low Procedure Risk: Low Anesthetic Plan Anesthetic Plan: MAC: Disposition: Standard PACU
[2023-12-14 09:36] VITALS: BMI 26.9
[2023-12-14 09:44] VITALS: BP 141/93; PULSE 106; RESP 16; TEMP 37; O2SAT 96
--- NOTE | 2023-12-14 09:51 | MHC.SHP ---
Pre-Procedural Eval Section A - 24 Hr Update-Section A only Date of Service: 12/14/23 Section B - Complete if H&P > 30 days Chief Complaint: Carcinoma in situ of rectum Relevant Family History (Specify if Yes): No Relevant Social History: None Present Medications: see Short Stay Collaborative assessment Medical History: Significant History (Rectal adenocarcinoma Bleeding hemorrhoids Hepatitis B GERD (gastroesophageal reflux disease) Duodenal ulcer disease Kidney stones) History of Previous Operations: Relevant previous surgery/procedure and date(s) (History of hemorrhoidectomy (~11/29/23) History of esophagogastroduodenoscopy (EGD)) Allergies: Allergies Allergy/AdvReac Type Severity Reaction Status Date / Time No Known Allergies Allergy Verified 12/13/23 13:11 Review of Systems Sugical H&P ROS: Negative: Constitution, Cardiovascular, Respiratory, Neurological, Psychiatric, Hem-Onc, Allergic/Immunologic, Gastrointestinal, Genitourinary, Musculoskeletal, Integumentary, Endocrine and Eyes/Ears/Nose/Throat Exam Surgical H&P Exam: Normal: HEENT, Normal: Heart, Normal: Lungs, Normal: Extremities, Normal: Abdomen, Normal: Skin and Normal: Neurological Plan Diagnosis/Plan: Unchanged I have reviewed the history and physical and performed a pertinent physical examination on my patient. No changes have occurred unless specified. Time Spent With Patient Time: Total time managing care of this patient today ____ minutes.
[2023-12-14] MEDS: Lactated Ringers 1,000 ML 100 ML IVCONT (09:58)
--- NOTE | 2023-12-14 10:47 | HO.OPN-COLON ---
Colonoscopy Operative Note Operative Note Date of Service: 12/14/23 Narrative: Operative Information Procedure Description: Colonoscopy Indication: Rectal mass Anesthesia: MAC COLONOSCOPY Instrument: Olympus variable stiffness pediatric scope 190L Colonoscopy Monitoring: Vital signs and clinical assessment, continuous EKG monitoring, Pulse oximetry, Carbon Dioxide monitoring and blood pressure monitoring were done throughout the procedure. Colon withdrawal time was 7 minutes. Procedure: The patient was placed in the left lateral decubitis position and pre-procedure medications were administered. After a digital rectal examination of the ano-rectum, the video colonoscope was inserted into the rectum and advanced through the colon to the cecum/TI. The colonoscope was slowly withdrawn in a retrograde panoramic fashion and the colon mucosa was carefully examined including a retroflexed view of the rectum. Findings and interventions are described below. Procedure Difficulty: easy Findings: Terminal Ileum-normal Cecum:normal Ascending Colon: normal Transverse Colon -normal Descending Colon:normal Sigmoid Colon: normal Rectum: Retroflexion with friable known rectal mass seen extending into the anal canal Anorectum - normal Intervention: none Colon preparation: [place] Bowel Preparation Scale Right colon; 2 Transverse colon: 2 Left colon; 2 (0 = Unprepared colon segment with mucosa not seen due to solid stool that cannot be cleared. 1 = Portion of mucosa of the colon segment seen, but other areas of the colon segment not well seen due to staining, residual stool and/or opaque liquid. 2 = Minor amount of residual staining, small fragments of stool and/or opaque liquid, but mucosa of colon segment seen well. 3 = Entire mucosa of colon segment seen well with no residual staining, small fragments of stool or opaque liquid) Impression and Post Procedure Diagnosis: Rectal mass Plan: f/u with Dr Bailey for further care Above findings were reviewed with the patient and relevant handouts were provided if indicated.
[2023-12-14 10:49] VITALS: BP 103/63; PULSE 87; RESP 16; TEMP 36.6; O2SAT 97
[2023-12-14 11:04] VITALS: BP 105/62; PULSE 71; RESP 16; O2SAT 100
[2023-12-14 11:19] VITALS: BP 115/76; PULSE 76; RESP 16; TEMP 36.4; O2SAT 100
== END 2023-12-14 11:50 | disposition home or self-care (01) ==
PROVIDERS: PCP Nurse Practitioner; Visit Provider Internal Medicine Gastroenterology
PROC: 0DJD8ZZ Inspection of Lower Intestinal Tract, Via Natural or Artificial Opening Endoscopic (ICD-10-PCS; CPT 45378; principal; 2023-12-14 11:10)
DX: C20 Malignant neoplasm of rectum (principal); K62.9 Disease of anus and rectum, unspecified; K64.9 Unspecified hemorrhoids; K59.09 Other constipation; K26.9 Duodenal ulcer, unspecified as acute or chronic, without hemorrhage or perforation; K21.9 Gastro-esophageal reflux disease without esophagitis; B19.10 Unspecified viral hepatitis B without hepatic coma; Z87.442 Personal history of urinary calculi
CPT/HCPCS: 45378; J2704

== ENCOUNTER → 2023-12-14 09:26 | Outpatient (BNV) | payer OTHER, SELFPAY | PROVIDERS: PCP Nurse Practitioner; Visit Provider Internal Medicine Gastroenterology | DX: K62.89 Other specified diseases of anus and rectum (principal) | CPT/HCPCS: 45378 ==

== ENCOUNTER 2023-12-21 10:52 | Day surgery (SDC) | payer OTHER, SELFPAY ==
--- NOTE | ~2023-12-21 | IR_ITS ---
CLINICAL HISTORY: Rectal cancer. The patient presents to interventional radiology for placement of a port for chemotherapy. PROCEDURES: 1. Real-time ultrasound-guided access into the right internal jugular vein after documentation of selected vessel patency, and permanent image storing in the patient records. 2. Placement of a 6.6 Vietnamese single-lumen power port. CLINICIAN: Skip Serna PA-C MEDICATIONS: - Versed 2.5 mg, Fentanyl 125 mcg, Lidocaine 1% 10 mL SQ -Antibiotics: Ancef 2g -For additional details, please see nursing flowsheet. Complications: None. Estimated blood loss: <5 ml Specimens: None. Contrast: None. Fluoroscopy time: 1.1 min MODERATE SEDATION TIME: 34 min PROCEDURE NOTE: The procedure, risks, benefits, and alternatives were carefully explained to the patient and written informed consent was obtained. The patient was placed supine on the fluoroscopy table. A timeout was performed. The right neck and chest was prepped and draped in usual sterile fashion. Maximum barrier technique was utilized. Local anesthesia was administered to the access site with 1% lidocaine. Under ultrasound guidance, the right internal jugular vein was accessed with a 5 fr micropuncture set. A 0.035 in wire was advanced into the IVC. A peel-away sheath was advanced over the wire and into the SVC, and the wire was removed. Next, subcutaneous lidocaine was administered to the chest. The port pocket was created after the skin incision, utilizing blunt dissection. Using blunt dissection, a subcutaneous tunnel was created that connects from the port pocket to the venotomy site. Through the peel-away sheath, the 6.6 Vietnamese port catheter was placed. The catheter position was verified with fluoroscopy to be at the superior vena cava/right atrial junction. The port was connected to the catheter and was placed in the pocket. The venotomy site was closed with a 3-0 Vicryl subcutaneous suture. The port incision site was closed with interrupted 3-0 Vicryl subcutaneous sutures and surgical glue. Prior to closing the skin, 1 g of Ancef solution was placed in the pocket. The port was tested, flushed, and packed with heparin per routine protocol. The patient tolerated the procedure well. The patient was stable after the procedure and was transferred to the PACU. The procedure was performed under moderate sedation and with a dedicated nurse with continuous monitoring of vital signs. A permanent image of the ultrasound the neck and fluoroscopic image of the chest was saved and sent to PACS. FINDINGS: 1. Patent right internal jugular vein 2. Placement of a 6.6 Vietnamese single lumen power port. 3. Port flushes and aspirates very well with a 10 mL syringe. No pneumothorax. IR/IR cvc insert tunnel w prt/kindergartners helper IMPRESSION: Placement of a 6.6 Vietnamese single-lumen power port. PLAN: - The patient will be discharged home when stable by sedation protocol. - Port may be used immediately. This procedure was performed by Skip Serna PA-C, and directly supervised by Dr. Washburn Electronically signed by: Danny Washburn MD 01/05/2024 12:30 PM EDT
--- NOTE | 2023-12-21 11:32 | PC.NURSE ---
while explaining to patient the procedure he became, dizzy, diaphoretic. laid patient down supine and took his vital signs, inserted and iv and checked his blood sugar. no changes. remained alert and awake. denies cp.
[2023-12-21 11:34] LABS: Glucose, Whole Blood 111 mg/dL (60-115)
--- NOTE | 2023-12-21 11:54 | PC.NURSE ---
patient feeling better. no changes with heart rate of bp. resting comfortably light sheet applied to patient and assisted with putting hospital attire on. warm to touch no fever 98-7 oral. diaphoresis decreased. patient states he feel better. hasnt eaten since yesterday around 930-10pm last night. remains on heart monitor. awaiting for talat patterson to evaluate patient. sent out a tiger connect. patient is stable at this time.
[2023-12-21 11:57] VITALS: BMI 27.3
--- NOTE | 2023-12-21 12:15 | PC.NURSE ---
MARYBETH LUONG BY BEDSIDE EVALUATING PATIENT
--- NOTE | 2023-12-21 12:23 | MHC.SHP ---
Pre-Procedural Eval Section A - 24 Hr Update-Section A only Date of Service: 12/21/23 Section B - Complete if H&P > 30 days Chief Complaint: adenocarcinoma of rectum--service date 12/22/23 Details of Present Illness: 28 y/o man with rectal cancer and poor iv access Relevant Family History (Specify if Yes): No Relevant Social History: None Present Medications: see Short Stay Collaborative assessment Medical History: Significant History History of Previous Operations: Relevant previous surgery/procedure and date(s) Allergies: Allergies Allergy/AdvReac Type Severity Reaction Status Date / Time No Known Allergies Allergy Verified 12/13/23 13:11 Review of Systems Sugical H&P ROS: Negative: Constitution, Cardiovascular, Respiratory and Integumentary Exam Surgical H&P Exam: Normal: Heart, Normal: Lungs, Normal: Skin and Normal: Neurological Plan 28 y/o man with rectal cancer and poor iv access -Port Time Spent With Patient Time: Total time managing care of this patient today ____ minutes.
[2023-12-21 14:14] VITALS: BP 118/77; PULSE 75; RESP 18; TEMP 36.1; O2SAT 97
[2023-12-21 14:31] VITALS: BP 110/69; PULSE 66; RESP 18; TEMP 36.2; O2SAT 98
== END 2023-12-21 14:35 | disposition home or self-care (01) ==
PROVIDERS: Student in an Organized Health Care Education/Training Program; PCP Nurse Practitioner; Visit Provider Internal Medicine Medical Oncology
DX: Z45.2 Encounter for adjustment and management of vascular access device (principal); C20 Malignant neoplasm of rectum; Z80.0 Family history of malignant neoplasm of digestive organs; B19.10 Unspecified viral hepatitis B without hepatic coma; K26.9 Duodenal ulcer, unspecified as acute or chronic, without hemorrhage or perforation; Z79.899 Other long term (current) drug therapy
CPT/HCPCS: 36561; 76937; 82947; 99152; 99153; C1769; C1788; J0131; J0690; J1642; J1644; J2250; J2310; J3010

== ENCOUNTER → 2023-12-21 12:42 | Outpatient (BNV) | payer OTHER, SELFPAY | PROVIDERS: PCP Nurse Practitioner; Visit Provider Student in an Organized Health Care Education/Training Program | DX: C20 Malignant neoplasm of rectum (principal) | CPT/HCPCS: 36561; 76937 ==

== ENCOUNTER 2023-12-26 10:37 | Outpatient (AMB) | payer OTHER, SELFPAY ==
--- NOTE | 2023-12-26 10:46 | A.OFFVIS_ITS ---
Vital Signs 12/26/23 10:47 Height 5 ft 8 in Weight 178 lb 9.191 oz BMI 27.1 BP 134/79 Blood Pressure Location Lt brachial Position Sitting Pulse 88 Intake Visit Reasons: follow up colonoscopy Intake Note: Sonja presents in the office as a f/u colonoscopy. CC: Allergies No Known Allergies Allergy (Verified 12/26/23 10:48) HPI HPI follow up colonoscopy: Details: 28 yr old m here for f/u He had colonoscopy, rectal mass, adenoca had MRI awaiting results, CT A/P also pending he has some rectal bleeding, nop FH of CRC EXAM: GENERAL: The patient is well developed and nontoxic. VITAL SIGNS:see workflow HEENT: Nonicteric sclerae, PERRLA, EOMI. Oropharynx clear. Moist mucous membranes. Conjunctivae appear well perfused. No thyroid mass. CHEST: Chest wall is nontender. catheter in chest noted HEART: Regular rate and rhythm without murmurs. LUNGS: Clear to auscultation bilaterally. ABDOMEN: Soft, positive bowel sounds, nontender, no organomegaly.no flank tenderness SKIN: No rash, no excessive bruising, petechiae, or purpura. NEUROLOGIC: Cranial nerves II-XII intact without motor/sensory deficit. Psych: normal affect A?P: 1/ rectal cancer, locally advanced right at anus PLAN: 1/ reviewed path, Dr Richardson is referring to tertiary center --prognosis guarded [facility] Medical History Rectal adenocarcinoma Bleeding hemorrhoids Hepatitis B GERD (gastroesophageal reflux disease) Duodenal ulcer disease Kidney stones Surgical History (Updated 12/26/23 @ 10:48 by GERRY Franklin) Hx of colonoscopy History of hemorrhoidectomy (~11/29/23) History of esophagogastroduodenoscopy (EGD) Family History Father Diabetes Social History Household Members: Family Patient Tobacco Use Status: Never used Tobacco service: No Current occupational status: employed Physical Exam Vital Signs: Last Vital Signs Pulse 88 12/26/23 10:47 BP 134/79 12/26/23 10:47 BMI result Body Mass Index 27.1 Assessment & Plan Assessment & Plan (1) Rectal adenocarcinoma: Code(s): C20 - Malignant neoplasm of rectum Category: Medical Plan: see above Coding Level of Care Code Est Pt Level 3 (51899) Diagnoses Rectal adenocarcinoma C20
[2023-12-26 10:47] VITALS: BP 134/79; PULSE 88; BMI 27.1
== END 2023-12-26 11:31 | disposition home or self-care (01) ==
PROVIDERS: PCP Nurse Practitioner; Visit Provider Internal Medicine Gastroenterology
DX: C20 Malignant neoplasm of rectum (principal)
CPT/HCPCS: 99213

== ENCOUNTER 2023-12-28 11:02 | Outpatient (REF) | payer OTHER, SELFPAY ==
--- NOTE | ~2023-12-28 | CT_ITS ---
EXAMINATION: CT CHEST, ABDOMEN AND PELVIS WITH CONTRAST CLINICAL INFORMATION: C20 - Malignant neoplasm of rectum COMPARISON: CT abdomen and pelvis 11/26/2020 TECHNIQUE: Multidetector volumetric imaging was performed from the thoracic inlet through the pubic symphysis following administration of 85 mL of Omnipaque 350. Sagittal and coronal reformatted images were obtained on the technologist's workstation. This CT examination was performed using dose optimization techniques as appropriate, variously including the following: *Automated exposure control *Adjustment of mA and/or kV according to patient size (this includes techniques or standardized protocols for targeted exams where dose is matched to indication/reason for exam; i.e. extremities or head) *Use of iterative reconstruction technique DLP: 442 mGy-cm FINDINGS: CHEST: Lung: The lungs are clear without focal opacity or nodule. No evidence of pulmonary metastatic disease. Mediastinum: The mediastinum is markedly. The central vascular structures are unremarkable with an incidentally noted is an aberrant right subclavian artery arising as the last branch from the thoracic aorta passing behind the esophagus and trachea. No hilar or mediastinal lymphadenopathy. Coronary Artery Calcium: None Pericardium/Pleura: No significant effusion. No pleural mass or thickening. Chest Wall/Axilla: Right jugular chest wall port present with tip in SVC. ABDOMEN/PELVIS: Peritoneal Space: No significant free air or free fluid identified. Liver, Gallbladder, Biliary Tree: The liver is normal in size, shape, and attenuation. There is a 2 cm mass in the right lobe of the liver that is not a cyst which was not present on the 11/26/2020 CT scan and findings are suspicious for metastatic disease (3:21). No other focal hepatic lesion or biliary ductal dilatation is present. The gallbladder is unremarkable with no evidence of radiopaque gallstones, gallbladder wall thickening, or obvious pericholecystic inflammatory changes. Pancreas: Unremarkable Spleen: Spleen is enlarged measuring 13.4 cm. Adrenal Glands: Unremarkable Kidneys and Ureters: The kidneys are normal in size, shape, and attenuation. There is a 3 mm nonobstructing right lower pole renal calculus with a few other smaller punctate calcifications similar to the 2020 study. No hydronephrosis, hydroureter, or additional calculi seen. No perinephric stranding. A benign left mid renal 0.8 cm Bosniak class I renal cyst is noted which requires no additional imaging or follow up. No solid renal masses are seen. Bladder: Unremarkable Gastrointestinal Tract: There is a perirectal mass in the ischiorectal fossa on the right measuring 2.5 x 2.3 2.8 cm The small and large bowel are unremarkable. The appendix is unremarkable. Abdominal Wall: No significant hernia is appreciated. Lymph Nodes: No lymphadenopathy. Vascular: The aorta appears normal.. The IVC appears unremarkable. PELVIC VISCERA: Unremarkable OSSEUS STRUCTURES: Unremarkable CT/CT abdomen pelvis w IV con IMPRESSION: 1. There is a 2 cm mass in the right lobe of the liver suspicious for metastatic disease. 2. There is a perirectal mass in the ischiorectal fossa on the right, also suspicious for malignancy 3. No evidence of pulmonary metastatic disease. 4. Incidental note made of an aberrant right subclavian artery, mild splenomegaly, nonobstructing right renal calculi and other findings described above. Fleischner guidelines were followed. Electronically signed by: Haile Burk MD 12/29/2023 03:18 PM EDT
[2023-12-28] MEDS: iohexoL 350 MG/ML 100 ML INFUS..BTL 85 ML IV (12:36)
== END 2023-12-28 11:03 | disposition home or self-care (01) ==
LOC: HO.CT 11:02
PROVIDERS: PCP Nurse Practitioner; Visit Provider Surgery
DX: C20 Malignant neoplasm of rectum (principal)
CPT/HCPCS: 71260; 74177; 99212; Q9967

== ENCOUNTER 2024-01-10 08:31 | Day surgery (SDC) | payer OTHER, SELFPAY ==
[2024-01-10] VITALS (8 sets, daily range): BP systolic 116–137; BP diastolic 50–86; PULSE 58–80; RESP 16; TEMP 36.2–36.4; O2SAT 97–98; BMI 26.9
--- NOTE | ~2024-01-10 | US_ITS ---
Colon cancer with new right lobe liver mass PROCEDURES: 1. Limited preprocedure ultrasound of the abdomen. Permanent images saved in PACS. 2. Ultrasound-guided biopsy of the right lobe liver mass. 3. Limited preprocedure ultrasound of the abdomen. Permanent images saved in PACS. CLINICIANS: Skip Serna PA-C MEDICATIONS: -Versed 2 mg, Fentanyl 100 mcg, and lidocaine 1% 10 mL SQ -Antibiotics: None -For additional details, please see nursing flowsheet. COMPLICATIONS: None ESTIMATED BLOOD LOSS: < 5 ml CONTRAST: None SPECIMENS: 4 x 20 g cores were sent to pathology MODERATE SEDATION TIME: 23 min PROCEDURE NOTE: The procedure, risks, benefits, and alternatives were carefully explained to the patient and written informed consent was obtained. The patient was placed supine on the exam table. A timeout was performed. A limited ultrasound of the abdomen was performed to localize the right lobe liver lesion and choose appropriate needle entry and trajectory. The patient was prepped and draped in usual sterile fashion. The skin and deeper soft tissues were anesthetized with lidocaine. Under ultrasound guidance, a 19 gauge trocar needle was advanced to the liver lesion. A 20 gauge biopsy device was inserted through the trocar needle advanced into the liver lesion. A total of 4, 20 gague cores were performed. The specimens were placed in formalin. A total of 2 Gelfoam torpedoes were then administered through the trocar needle into the biopsy tract and at the level of the liver capsule. The needle was removed. A limited post procedure ultrasound was then performed. Images were saved in PACS. A dry dressing was applied and secured with Tegaderm. There were no immediate complications. The patient was stable after the procedure and was transferred to the post anesthesia care unit. The procedure was done under moderate sedation with a dedicated nurse for monitoring of vital signs. US/US biopsy liver Impression: Ultrasound-guided biopsy of a right lobe liver mass. This procedure was performed by Skip Serna PA-C and supervised by Dr. Washburn. Electronically signed by: Danny Washburn MD 01/17/2024 02:48 PM EDT
[2024-01-10 09:46] LABS: INTERNATIONAL NORM RATIO 1.2 (0.9-1.1); Prothrombin Time 14.1 SEC (11.1-13.3)
[2024-01-10 09:49] LABS: Partial Thromboplastin Time 31.4 SEC (26.0-36.8)
--- NOTE | 2024-01-10 10:58 | MHC.SHP ---
Pre-Procedural Eval Section A - 24 Hr Update-Section A only Date of Service: 01/10/24 Section B - Complete if H&P > 30 days Chief Complaint: liver disease Details of Present Illness: 28 y/o man with colorectal cancer and a new right liver mass Relevant Family History (Specify if Yes): No Relevant Social History: None Present Medications: see Short Stay Collaborative assessment Medical History: Significant History History of Previous Operations: Relevant previous surgery/procedure and date(s) Allergies: Allergies Allergy/AdvReac Type Severity Reaction Status Date / Time No Known Allergies Allergy Verified 12/26/23 10:48 Review of Systems Sugical H&P ROS: Negative: Constitution, Cardiovascular, Respiratory and Gastrointestinal Exam Surgical H&P Exam: Normal: Heart, Normal: Lungs, Normal: Skin and Normal: Neurological Plan Image guided right lobe liver mass biopsy Time Spent With Patient Time: Total time managing care of this patient today ____ minutes.
[2024-01-10] MEDS: Lidocaine HCl 1 % MPF 30 ML VIAL SUBCUT (11:51)
== END 2024-01-10 13:45 | disposition home or self-care (01) ==
PROVIDERS: Physician Assistant Surgical; Student in an Organized Health Care Education/Training Program; PCP Nurse Practitioner; Visit Provider Internal Medicine Medical Oncology
DX: K76.9 Liver disease, unspecified (principal); C20 Malignant neoplasm of rectum; B19.10 Unspecified viral hepatitis B without hepatic coma; K64.8 Other hemorrhoids; K64.4 Residual hemorrhoidal skin tags; K26.9 Duodenal ulcer, unspecified as acute or chronic, without hemorrhage or perforation; K21.9 Gastro-esophageal reflux disease without esophagitis; Z79.899 Other long term (current) drug therapy; Z98.890 Other specified postprocedural states
CPT/HCPCS: 36415; 47000; 76942; 85610; 85730; 86850; 86900; 86901; 88307; 88313; 99152; 99153; J0131; J1642; J2250; J2310; J3010

== ENCOUNTER → 2024-01-10 10:36 | Outpatient (BNV) | payer OTHER, SELFPAY | PROVIDERS: PCP Nurse Practitioner; Visit Provider Student in an Organized Health Care Education/Training Program | DX: R16.0 Hepatomegaly, not elsewhere classified (principal) | CPT/HCPCS: 47000; 76942 ==

== ENCOUNTER → 2024-02-07 07:40 | Outpatient (REF) | payer OTHER, SELFPAY ==
--- NOTE | 2024-02-07 07:43 | CA_ITS ---
Transthoracic Echocardiogram Patient (Last, First, Middle): Leigh Sue, Gender: Male Date of : 1995 Age: 28 Procedure Date: 02/07/2024 Procedure Type: Transthoracic Echocardiogram Location: OP Height: 172.72 cm Weight: 82.1 kg BSA: 1.96 m2 Heart Rate: 86 bpm BP: 110 / 72 mmHg Lamination Assembler: TO Referring MD: Socorro Bailey MD Career Services Representative: Myron Ayala MD Symptoms: Chest pain, palpitations,on chemo forrectalcancer Study Quality: Adequate ECG Rhythm: Sinus Conclusions: - Essentially normal study Findings Left Ventricle Normal left ventricular size, thickness, and systolic function. The visually estimated ejection fraction is between 55-60%. Spectral Doppler is indicative of a normal filling pattern. Peak GLS is -19.8%, within normal limits. Right Ventricle Normal right ventricular cavity size and systolic function. Atria Both atria are normal in size. There is no evidence of interatrial shunt. Aortic Valve Normal aortic valve structure and function. There is no aortic valve stenosis. There is no aortic valve regurgitation. Mitral Valve Normal mitral valve structure and function. There is trace mitral valve regurgitation. There is no mitral valve stenosis. Pulmonic Valve The pulmonic valve is likely normal. Tricuspid Valve Normal tricuspid valve structure. Tricuspid regurgitation envelope is inadequate for calculation of right ventricular systolic pressure. Normal right atrial pressure. Great Vessels All visible segments of the aorta are normal in size. The pulmonary artery was not well visualized. Venous The inferior vena cava is normal in size and collapses greater than 50% with inspiration. Pericardium/Pleural There is no evidence of pericardial effusion. Prior Study Comparison No prior study available for comparison. Measurements 2D Linear Measurements IVSd: 0.91 0.6-0.9/0.6-1.0 cm LVIDd: 4.51 3.9-5.3/4.2-5.9 cm LVIDd Index: 2.30 2.4-3.2/2.2-3.1 cm/m2 LVIDs: 3.28 2.0-3.6 cm LVPWd: 0.66 0.7-1.1 cm LA Diam: 3.10 2.7-3.8/3.0-4.0 cm LAIDs Index: 1.58 1.5-2.3 cm/m2 LV Mass: 138.57 67-162/88-224 g LV Mass Index: 70.70 43-95/49-115 g/m2 LVOT Diam: 2.10 3.0+(-)1.3 cm 2D Systolic Function EF 4C: 55.50 >55% EF 2C: 62.50 >55% EF BiP: 59.00 >55% Mitral Valve MV Pk E: 0.81 MV PK A: 0.50 MV Decel Time: 127.00 E/A: 1.60 E'Lateral: 14.60 E'Medial: 7.83 E/E' Med: 10.30 E/E' Lat: 5.50 PHT: 37.00 MVA PHT: 5.95 Decel [place]: 6.35 Aortic Valve AoV Pk Dao: 1.48 AoV Mn Dao: 1.12 AoV VTI: 0.26 AoV Pk Grad: 9.00 Aov Mn Grad: 5.00 SE[place]STI[place]N Cont.VTI: 2.87 LVOT LVOT Pk Dao: 1.35 LVOT Mn Dao: 0.85 LVOT VTI: 0.21 LVOT Pk Grad: 7.00 LVOT Mn Grad: 3.00 LVOT Diam: 2.10 LVOT Area: 3.46 Diastolic Function MV Pk E: 0.81 MV Pk A: 0.50 E/A: 1.60 E'Medial: 7.83 E/E' Med: 10.30 E' Laterial: 14.60 E/E' Lat: 5.50 Right Ventricle TAPSE (mm): 23.20 TVS' Dao: 15.00 Tricuspid Valve RA Press: 3.00 Great Vessels Aorta Sinus of Valsalva: 3.15 2.0-3.5 cm Ao Asc: 2.80 2.1-3.4 cm Updated in Other Vendor System with Status of Final Myron Ayala MD electronically signed on 02/08/2024 2:58:05 PM with status of Final
== END ==
LOC: HO.CARD 07:40
PROVIDERS: PCP Nurse Practitioner; Visit Provider Internal Medicine Medical Oncology
DX: R07.9 Chest pain, unspecified (principal)
CPT/HCPCS: 93306; 93356

== ENCOUNTER → 2024-02-07 07:43 | Outpatient (BNV) | payer OTHER, SELFPAY | PROVIDERS: PCP Nurse Practitioner; Visit Provider Internal Medicine Cardiovascular Disease | DX: Z51.81 Encounter for therapeutic drug level monitoring (principal) | CPT/HCPCS: 93306; 93356 ==

== ENCOUNTER 2024-04-10 09:31 | Outpatient (REF) | payer OTHER, SELFPAY ==
--- NOTE | ~2024-04-10 | CT_ITS ---
EXAMINATION: CT ABDOMEN AND PELVIS WITH CONTRAST CLINICAL INFORMATION: Rectal carcinoma. Status post FOLFOX. Follow-up. COMPARISON: CT dated December 28, 2023. TECHNIQUE: Multidetector volumetric images were obtained from the superior aspect of the liver through the pubic symphysis following administration 85 mL of Omnipaque 350 intravenous contrast. Sagittal and coronal reformatted images were obtained on the technologist's workstation. Oral contrast: No This CT examination was performed using dose optimization techniques as appropriate, variously including the following: *Automated exposure control *Adjustment of mA and/or kV according to patient size (this includes techniques or standardized protocols for targeted exams where dose is matched to indication/reason for exam; i.e. extremities or head) *Use of iterative reconstruction technique DLP: 364.8 mGy-cm FINDINGS: LUNG BASES: No acute airspace disease or gross pulmonary nodules. LIVER, GALLBLADDER, AND BILIARY TREE: Liver measures 14 cm. There is a 1.1 cm ill-defined hypodense lesion in the periphery of the right hepatic lobe, probably segment 7. Portal veins, hepatic veins and intrahepatic portion of the IVC are patent. Bladder is contracted. No pericholecystic fluid collection or gallbladder wall thickening. No intrahepatic or extrahepatic biliary ductal dilatation. PANCREAS: No focal mass. No peripancreatic fluid collection. No main pancreatic ductal dilatation. SPLEEN: 14 cm. No focal mass. ADRENAL GLANDS: No nodular lesions. KIDNEYS AND URETERS: No gross renal mass or hydronephrosis. Questionable nonobstructing nephrolithiasis the right kidney. Subcentimeter cyst in the upper pole left kidney. BLADDER: Fluid-filled nearly collapsed. GASTROINTESTINAL TRACT: There is a 1.1 x 1.4 x 1.9 cm exophytic and peripheral enhancing low density mass extending from the 9:00 position of the rectum wall into the right pararectal fat beneath the mesorectal fascia. There is circumferential segmental thickening involving the rectum into the anus. No intestinal obstruction pattern. No ascites. No pneumoperitoneum. No pneumatosis intestinalis. Appendix is normal. ABDOMINAL WALL: Small fat-containing umbilical hernia. LYMPH NODES: There are multiple prominent less than 1 cm lymph nodes, retroperitoneum and mesentery.. VASCULAR: No aneurysm or dissection, abdominal aorta. OSSEOUS STRUCTURES: No lytic or blastic lesions. No acute fracture or gross listhesis. CT/CT abdomen pelvis w IV con IMPRESSION: Decreased exophytic mass, right perirectal and slightly decreased lesion right hepatic lobe. Nonspecific prominent lymph nodes. Overall improved since prior examination. Splenomegaly. Fleischner guidelines were followed. Electronically signed by: Jose Ureña MD 04/11/2024 12:00 PM EST
--- NOTE | ~2024-04-10 | CT_ITS ---
EXAMINATION: CT CHEST WITH CONTRAST CLINICAL INFORMATION: Adenocarcinoma of the rectum, restaging. COMPARISON: CT chest dated December 26, 2023. TECHNIQUE: Multidetector volumetric CT imaging of the chest was obtained after the administration of 85 mL of Omnipaque 350 intravenous contrast without immediate adverse reactions. Axial MIP volume rendering provided. Sagittal and coronal reformatted images were obtained. This CT examination was performed using dose optimization techniques as appropriate, variously including the following: *Automated exposure control *Adjustment of mA and/or kV according to patient size (this includes techniques or standardized protocols for targeted exams where dose is matched to indication/reason for exam; i.e. extremities or head) *Use of iterative reconstruction technique DLP: 172.1 mGy-cm FINDINGS: Submitted for interpretation on April 11, 2024. No pulmonary nodules. No consolidation. No bronchiectasis. No honeycombing. Respiratory airways patent. 1 cm lymph node, right pretracheal. No lymphadenopathy, axillary or perihilar. No axillary lymphadenopathy. No aneurysm or dissection, thoracic aorta. Right aberrant subclavian with the right esophageal trajectory. No gross intraluminal filling defects within the main pulmonary artery or its main left and right branches. No pericardial effusion. No pleural effusion. No pneumothorax. No lytic or blastic lesions. No acute fracture or listhesis. There is a Port-A-Cath catheter tip ending in the right atrium with a reservoir in the anterior right upper chest wall. There is a 1.4 cm hypodense lesion in the peripheral right hepatic lobe. Decreased enhancement pattern throughout the liver parenchyma. The thyroid gland is not enlarged. CT/CT chest w IV con IMPRESSION: 1 cm right pretracheal lymph node, nonspecific. Tumor infiltration cannot be excluded. 1.4 cm hypodense lesion, right hepatic lobe. Aberrant right subclavian artery. Fleischner guidelines were followed. Electronically signed by: Jsoe Ureña MD 04/11/2024 11:41 AM JOSELINE
[2024-04-10] MEDS: iohexoL 350 MG/ML 100 ML INFUS..BTL IV (11:48)
[2024-04-10] MEDS: Barium Sulfate Oral (Berry) 450 ML ORAL.SUSP PO ×2 (11:48)
--- OUTSIDE RECORDS SUMMARY | 2024-04-11 19:30 | XMS_ITS ---
Author Name [facility] Organization Unknown History of Medication Use Medication Directions Dispensed Refills Start Date End Date Stat esomeprazole (NexIUM) 40 mg capsule Take 40 mg by mouth in the morning. 04/07/2024 05/01/9999 active sennosides-docusate sodium (SENOKOT-S) 8.6-50 mg tablet TAKE 2 TABLETS BY MOUTH IF NEEDED AT BEDTIME FOR CONSTIPATION. 04/07/2024 05/01/9999 active amitriptyline (ELAVIL) 10 mg tablet TAKE 1 TABLET BY MOUTH EVERYDAY AT BEDTIME 04/07/2024 05/01/9999 active esomeprazole (NexIUM) 40 MG capsule Take 1 capsule (40 mg total) by mouth every morning before breakfast. 01/14/2024 active LORazepam (ATIVAN) 0.5 MG tablet Take 1 tablet (0.5 mg total) by mouth nightly as needed for anxiety. 01/14/2024 active ondansetron (ZOFRAN-ODT) 8 MG disintegrating tablet Take 1 tablet (8 mg total) by mouth 3 times daily (every 8 hours) as needed for nausea or vomiting. Place tablet on tongue and to dissolve. 01/14/2024 active entecavir (BARACLUDE) 0.5 mg tablet Take 1 tablet (0.5 mg total) by mouth daily. 01/14/2024 active oxyCODONE (OXY-IR) 5 MG capsule Take 1 capsule (5 mg total) by mouth 3 times daily (every 8 hours) as needed for severe pain. Max Daily Amount: 15 mg 01/14/2024 active polyethylene glycol (miraLAx) 17 g packet Take 1 packet (17 g total) by mouth daily. 01/14/2024 active dexAMETHasone (DECADRON) 4 MG tablet TAKE 1 TABLET BY MOUTH TWICE A DAY ON DAYS 2 AND 3 OF CHEMOTHERAPY EVERY 2 WEEKS. 01/14/2024 active bisacodyl (DULCOLAX) 5 MG EC tablet Take 2 tablets (10 mg total) by mouth nightly. 01/14/2024 active Problems Problem Status Onset Date Problem Type Date of Resolution Source Hepatitis B infection without delta agent without hepatic coma, unspecified chronicity active [facility] Adenocarcinoma of rectum active 2024-03-21 ProblemAct [facility] Gastroesophageal reflux disease, unspecified whether esophagitis present active [facility] Normocytic anemia active 2024-01-06 ProblemAct [facility] Sinus tachycardia active 2024-01-06 ProblemAct [facility] Rigors active 2024-01-06 ProblemAct [facility] Thrombocytopenia active 2024-01-06 ProblemAct [facility] Rectal cancer active 2024-01-06 ProblemAct [facility]
== END 2024-04-10 09:32 | disposition home or self-care (01) ==
LOC: HO.CT 09:31
PROVIDERS: PCP Nurse Practitioner; Visit Provider Internal Medicine Medical Oncology
DX: C20 Malignant neoplasm of rectum (principal)
CPT/HCPCS: 71260; 74177; Q9967

== ENCOUNTER → 2024-04-10 09:34 | Outpatient (BNV) | payer OTHER, SELFPAY | PROVIDERS: PCP Nurse Practitioner; Visit Provider Radiology Diagnostic Radiology | DX: C20 Malignant neoplasm of rectum (principal) | CPT/HCPCS: 71260; 74177 ==